=== PATIENT | female | born 1975 | race Caucasian/White ===

== ENCOUNTER → 2016-12-28 | Outpatient (CLI) | payer OTHER ==
[2016-12-28 13:33] LABS: MEAN CORPUSCULAR HEMOGLOBIN 20.7 pg (27.0-33.0); MEAN CORPUSCULAR HGB CONC 28.9 g/dl (32.0-36.5); MEAN CORPUSCULAR VOLUME 71.9 fl (80.0-96.0); RED CELL DISTRIBUTION WIDTH 16.4 % (11.5-14.5); WHITE BLOOD COUNT 7.4 K/mm3 (4.0-10.0)
--- NOTE | 2016-12-28 14:13 | REP ---
RIGHT SCAPULA: Two views of the right scapula are performed. There is no acute fracture, dislocation, or intrinsic bone disease. IMPRESSION: Negative radiographs right scapula. Signed by Jaxon Lee MD 12/28/2016 02:29 P
[2016-12-28 14:17] LABS: ALBUMIN 3.4 GM/DL (3.2-5.2); ALBUMIN/GLOBULIN RATIO 0.92 (1.00-1.93); ALKALINE PHOSPHATASE 86 U/L (45-117); ALT/SGPT 21 U/L (12-78); ANION GAP 10 MEQ/L (8-16); AST/SGOT 12 U/L (15-37); BILIRUBIN,TOTAL 0.5 MG/DL (0.2-1.0); BLOOD UREA NITROGEN 11 MG/DL (7-18); CALCIUM LEVEL 8.5 MG/DL (8.5-10.1); CARBON DIOXIDE LEVEL 24 MEQ/L (21-32); CHLORIDE LEVEL 102 MEQ/L (98-107); CHOLESTEROL LEVEL 171 MG/DL (<200); CREATININE FOR GFR 0.47 MG/DL (0.55-1.02); GLOMERULAR FILTRATION RATE > 60.0 (>58); GLUCOSE, FASTING 283 MG/DL (70-105); MAGNESIUM LEVEL 1.7 MG/DL (1.8-2.4); POTASSIUM SERUM 4.6 MEQ/L (3.5-5.1); SODIUM LEVEL 136 MEQ/L (136-145); TOTAL PROTEIN 7.1 GM/DL (6.4-8.2); TRIGLYCERIDES LEVEL 75 MG/DL (<150)
== END ==
LOC: M LAB 12:48
PROVIDERS: ATTEND Nurse Practitioner Family
DX: Z13.220 Encounter for screening for lipoid disorders (principal); R73.09 Other abnormal glucose; E28.2 Polycystic ovarian syndrome; M25.511 Pain in right shoulder

== ENCOUNTER → 2017-01-04 | Outpatient (CLI) | payer OTHER ==
--- NOTE | 2017-01-05 04:50 | REP ---
Clinical: Mass. Technique: Real time guillaume scale ultrasound examination of the right lower extremity. Findings: Directed ultrasound examination in the region of mass demonstrates a multiloculated fat containing area likely representing lipoma measuring 7.5 x 2.7 x 2.9 cm. Impression: Area of palpable mass likely represents multiloculated lipoma. Signed by Laz Carey MD 01/05/2017 04:41 A
== END ==
LOC: M RAD 12:05
PROVIDERS: ATTEND Nurse Practitioner Family
DX: D17.23 Benign lipomatous neoplasm of skin and subcutaneous tissue of right leg (principal)

== ENCOUNTER → 2017-01-06 | Outpatient (CLI) | payer OTHER ==
--- NOTE | 2017-01-09 05:59 | REP ---
MRI BRAIN WITHOUT CONTRAST: HISTORY: Bilateral tinnitus. Several punctate areas of increased signal intensity on T2-weighted images are present in the _ subcortical white matter . There is no intraparenchymal hemorrhage, infarct, mass or midline shift. The ventricular system is normal in appearance. There is no extracerebral collection. The mastoid air cells are clear. Minimal mucosal thickening is present in the maxillary sinuses. IMPRESSION: There are several punctate areas of increased signal intensity in the subcortical white matter . This is a nonspecific finding. Signed by Perez Rincon MD 01/09/2017 08:23 A
== END ==
LOC: M RAD 17:48
PROVIDERS: ATTEND Nurse Practitioner Family
DX: H93.13 Tinnitus, bilateral (principal); R53.1 Weakness

== ENCOUNTER → 2017-01-11 | Outpatient (REF) | payer OTHER ==
[2017-01-11 14:07] LABS: BASO # 0.1 K/mm3 (0.0-0.2); BASO % 1.4 % (0.0-1.0); EOS # 0.4 K/mm3 (0.0-0.50); EOS % 6.3 % (0.0-3.0); LARGE UNSTAINED CELL # 0.1 K/mm3 (0.0-0.4); LARGE UNSTAINED CELL % 1.3 % (0.0-4.0); MEAN CORPUSCULAR HEMOGLOBIN 20.7 pg (27.0-33.0); MEAN CORPUSCULAR VOLUME 73.9 fl (80.0-96.0); MONO # 0.3 K/mm3 (0.0-0.8); MONO % 4.1 % (0.0-5.0); NEUTROPHILS # 4.4 K/mm3 (1.8-7.7); NEUTROPHILS % 71.9 % (36.0-66.0); PLATELET COUNT, AUTOMATED 376 k/mm3 (150-450); RED CELL DISTRIBUTION WIDTH 15.9 % (11.5-14.5); WHITE BLOOD COUNT 6.2 K/mm3 (4.0-10.0)
[2017-01-11 14:25] LABS: ADD MORPHOLOGY? YES
[2017-01-11 14:56] LABS: ANISOCYTOSIS 1+; HYPOCHROMASIA 2+; MICROCYTOSIS 2+
[2017-01-14 00:06] LABS: GAD-65 AUTOANTIBODY <5.0 U/mL (0.0-5.0)
== END ==
LOC: M LAB REF 13:33
PROVIDERS: ATTEND Nurse Practitioner Family
DX: D50.0 Iron deficiency anemia secondary to blood loss (chronic) (principal); E55.9 Vitamin D deficiency, unspecified; R73.9 Hyperglycemia, unspecified

== ENCOUNTER → 2017-01-12 | Outpatient (CLI) | payer OTHER ==
--- NOTE | 2017-01-12 20:46 | REP ---
Clinical: Amenorrhea. Comparison: 10/17/2011 . Technique: Transabdominal pelvic ultrasound with color Doppler evaluation of the ovaries. Findings: Bladder is unremarkable and measures 11.2 x 6.5 x 10.2 cm . Enlarged, heterogeneous, anteverted uterus measures 16.3 x 4.7 x 9.3 cm and includes 5.5 cm anterior fundal subserosal fibroid, 3.1 cm left anterior fibroid, and 2.1 cm right lateral intramural fibroid. The endometrial complex measures 5.2 mm thickness. No discrete uterine or endometrial abnormalities are appreciated. Bilateral ovaries are normal in appearance and vascularity without evidence for torsion. Right ovary measures 3.0 x 1.3 x 2.8 cm ; R I = 0.59 . Left ovary measures 2.9 x 2.1 x 2.7 cm ; R I = 0.51 . No pelvic fluid or adnexal mass lesion. . Impression: 1. Heterogeneous enlarged myomatous uterus. 2. Normal bilateral ovaries. 3. No pelvic fluid or adnexal mass lesion. Signed by Laz Carey MD 01/12/2017 05:08 P
== END ==
LOC: M RAD 13:34
PROVIDERS: ATTEND Nurse Practitioner Family
DX: N91.2 Amenorrhea, unspecified (principal); D64.9 Anemia, unspecified

== ENCOUNTER → 2017-01-17 | Outpatient (REF) | payer OTHER ==
[2017-01-17 19:28] LABS: BASO % 0.8 % (0.0-1.0); EOS # 0.4 K/mm3 (0.0-0.50); LARGE UNSTAINED CELL # 0.1 K/mm3 (0.0-0.4); LARGE UNSTAINED CELL % 1.5 % (0.0-4.0); LYMPH % 15.8 % (24.0-44.0); MEAN CORPUSCULAR HGB CONC 28.7 g/dl (32.0-36.5); MEAN CORPUSCULAR VOLUME 76.7 fl (80.0-96.0); MONO # 0.4 K/mm3 (0.0-0.8); MONO % 5.6 % (0.0-5.0); NEUTROPHILS # 4.5 K/mm3 (1.8-7.7); NEUTROPHILS % 70.4 % (36.0-66.0); PLATELET COUNT, AUTOMATED 372 k/mm3 (150-450); WHITE BLOOD COUNT 6.4 K/mm3 (4.0-10.0)
[2017-01-17 19:29] LABS: ADD MORPHOLOGY? YES
[2017-01-17 21:23] LABS: ANISOCYTOSIS 1+
[2017-01-17 21:24] LABS: HYPOCHROMASIA 2+; MICROCYTOSIS 1+
== END ==
LOC: M LAB REF 17:12
PROVIDERS: ATTEND Nurse Practitioner Family
DX: D50.0 Iron deficiency anemia secondary to blood loss (chronic) (principal)

== ENCOUNTER → 2017-02-16 | Outpatient (REF) | payer OTHER ==
[2017-02-16 17:59] LABS: MEAN CORPUSCULAR HEMOGLOBIN 22.8 pg (27.0-33.0); MEAN CORPUSCULAR HGB CONC 30.6 g/dl (32.0-36.5); MEAN CORPUSCULAR VOLUME 74.7 fl (80.0-96.0); RED CELL DISTRIBUTION WIDTH 17.3 % (11.5-14.5); WHITE BLOOD COUNT 5.1 K/mm3 (4.0-10.0)
[2017-02-16 18:00] LABS: ANION GAP 11 MEQ/L (8-16); BLOOD UREA NITROGEN 11 MG/DL (7-18); CALCIUM LEVEL 8.7 MG/DL (8.5-10.1); CARBON DIOXIDE LEVEL 21 MEQ/L (21-32); CHLORIDE LEVEL 107 MEQ/L (98-107); CREATININE FOR GFR 0.46 MG/DL (0.55-1.02); GLOMERULAR FILTRATION RATE > 60.0 (>58); GLUCOSE, FASTING 243 MG/DL (70-105); POTASSIUM SERUM 4.1 MEQ/L (3.5-5.1); SODIUM LEVEL 139 MEQ/L (136-145)
== END ==
LOC: M LAB REF 17:13
PROVIDERS: ATTEND Nurse Practitioner Family
DX: E55.9 Vitamin D deficiency, unspecified (principal); D50.0 Iron deficiency anemia secondary to blood loss (chronic)

== ENCOUNTER → 2017-03-10 | Day surgery (SDC) | payer OTHER ==
[~2017-03-10] VITALS: Ht 172.7 cm; Wt 88.0 kg
[~2017-03-10] MED LIST: COLA100C3 PO; HumaLOG INSULIN (NovoLOG) PER UNIT As Ordered ONE; HumaLOG INSULIN (NovoLOG) PER UNIT SC ONE; IBUP600T26 PO; JANU100T PO; KETOROLAC 30 MG/ML VIAL (J1885) IV PRN; KETOROLAC 60 MG/2 ML VIAL (J1885) As Ordered ONE; LIDOCAINE 2% INJ 100 MG/5 ML SDV (FOR ANES.) As Ordered ONE; LIDOCAINE W/EPINEPHRINE 1% 20ML VIAL As Ordered ONE; LR 1,000 ML IV ONE; LR 1,000 ML IV SCH; METF1000 PO; MIDAZOLAM INJ 2 MG/2 ML VIAL (J2250) As Ordered ONE; NORCO, ANEXSIA 5/325MG TABLET (HYDROcodone/ACETAMINOPHEN) PO PRN; ONDANSETRON 4MG/2ML VIAL (J2405) As Ordered ONE; ONDANSETRON 4MG/2ML VIAL (J2405) IV PRN; PROPOFOL 200 MG/20 ML VIAL As Ordered ONE; TYLE500T78 PO; fentaNYL 100 MCG/2 ML INJECTION (J3010) As Ordered ONE; fentaNYL 100 MCG/2 ML INJECTION (J3010) IV PRN
[2017-03-10 09:05] LABS: CONTROL LINE UCG INT CTR LINE PRESENT
[2017-03-10 11:50] VITALS: BP 161/82
--- NOTE | 2017-03-11 08:25 | RO ---
DATE OF PROCEDURE: 03/10/2017 PREOPERATIVE DIAGNOSIS: Right thigh lipoma. POSTOPERATIVE DIAGNOSIS: Right thigh lipoma. PROCEDURES: Excision of right thigh lipoma. SURGEON: Jaxon Christian DO CUSTOMS COMPLIANCE ANALYST: None. ANESTHESIA: Intravenous (IV) sedation with 20 mL of 1% lidocaine with epinephrine local. COMPLICATIONS: None. INDICATION FOR PROCEDURE: The patient is a 41-year female who presents with a very large right posterolateral thigh lipoma that causes pain when she walks and difficulty with her clothing fitting properly. The recommendation to proceed with excision. The risks and benefits of the procedure not limited but including bleeding, infection, seroma formation, need for further surgery discussed in detail with the patient. Informed consent was obtained, and the procedure was planned. DESCRIPTION OF PROCEDURE: The patient brought back to operating room #6. She is placed in left lateral decubitus position. The right posterior thigh was sterilely prepped and draped with chlorhexidine. Next, time-out was done to confirm proper patient and proper procedure. Following that, the local was injected into the skin and subcutaneous tissues overlying this lesion. A large 10 cm incision was then created using a #15 blade scalpel. There was a large infiltrative lipoma encountered without any signs of a capsule. It was dissected circumferentially using a #10 blade scalpel. There were two separate lipomas removed. One was 8 x 6 cm and one 5 by 3 cm. They were both sent for pathology. Once they were removed, the cavity was irrigated. Hemostasis was achieved using electrocautery at a couple of small spots. Once that was completed, the two elliptical portions of skin were excised from both sides of the wound due to the excess skin. They were 10 cm in length, about 2 cm wide, each. Both of these were excised, then the incision was closed using interrupted 2-0 nylon sutures. Once the incision was closed, the area was cleaned and dried, 4 x 4s and tape were applied, thus ending the procedure.
== END ==
LOC: M SDC 08:33
PROVIDERS: ATTEND Surgery
DX: D17.23 Benign lipomatous neoplasm of skin and subcutaneous tissue of right leg (principal); E11.9 Type 2 diabetes mellitus without complications; D64.9 Anemia, unspecified; D25.9 Leiomyoma of uterus, unspecified; N93.9 Abnormal uterine and vaginal bleeding, unspecified; Z79.899 Other long term (current) drug therapy; Z79.84 Long term (current) use of oral hypoglycemic drugs

== ENCOUNTER 2017-03-15 11:54 | Emergency (ER) | payer OTHER ==
[~2017-03-15] VITALS: Ht 172.7 cm; Wt 92.3 kg
[~2017-03-15 11:54] MED LIST changes: -COLA100C3 PO; -HumaLOG INSULIN (NovoLOG) PER UNIT As Ordered ONE; -HumaLOG INSULIN (NovoLOG) PER UNIT SC ONE; -IBUP600T26 PO; -KETOROLAC 30 MG/ML VIAL (J1885) IV PRN; -KETOROLAC 60 MG/2 ML VIAL (J1885) As Ordered ONE; -LIDOCAINE 2% INJ 100 MG/5 ML SDV (FOR ANES.) As Ordered ONE; -LIDOCAINE W/EPINEPHRINE 1% 20ML VIAL As Ordered ONE; -LR 1,000 ML IV ONE; -LR 1,000 ML IV SCH; -MIDAZOLAM INJ 2 MG/2 ML VIAL (J2250) As Ordered ONE; -NORCO, ANEXSIA 5/325MG TABLET (HYDROcodone/ACETAMINOPHEN) PO PRN; -ONDANSETRON 4MG/2ML VIAL (J2405) As Ordered ONE; -ONDANSETRON 4MG/2ML VIAL (J2405) IV PRN; -PROPOFOL 200 MG/20 ML VIAL As Ordered ONE; -fentaNYL 100 MCG/2 ML INJECTION (J3010) As Ordered ONE; -fentaNYL 100 MCG/2 ML INJECTION (J3010) IV PRN
[2017-03-15] MEDS ORDERED: IBUP600T26 PO (12:09)
[2017-03-15] MEDS ORDERED: COLA100C3 PO (12:10)
[2017-03-15] MEDS ORDERED: MAGNESIUM CITRATE 300 ML BTL PO ONE (14:00)
[2017-03-15] MEDS ORDERED: FLEET ENEMA PR ONE (14:00)
[2017-03-15 14:09] VITALS: BP 144/88
== END 2017-03-15 14:21 | disposition home or self-care (01) ==
LOC: M ED 11:54
DX: K56.41 Fecal impaction (principal)

== ENCOUNTER → 2017-05-26 | Outpatient (CLI) | payer OTHER ==
[~2017-05-26] MED LIST changes: +COLA100C5 PO; +IBUP-1022 PO; -METF1000 PO; +METF10004 PO
[2017-05-26 18:54] LABS: MEAN CORPUSCULAR HEMOGLOBIN 20.8 pg (27.0-33.0); MEAN CORPUSCULAR HGB CONC 27.9 g/dl (32.0-36.5); MEAN CORPUSCULAR VOLUME 74.6 fl (80.0-96.0); RED CELL DISTRIBUTION WIDTH 15.3 % (11.5-14.5); WHITE BLOOD COUNT 7.7 K/mm3 (4.0-10.0)
== END ==
LOC: M SMT 13:33
PROVIDERS: ATTEND Specialist
DX: N93.8 Other specified abnormal uterine and vaginal bleeding (principal)

== ENCOUNTER → 2017-07-06 | Outpatient (REF) | payer OTHER ==
[2017-07-06 14:52] LABS: ALBUMIN 3.4 GM/DL (3.2-5.2); ALBUMIN/GLOBULIN RATIO 0.83 (1.00-1.93); ALKALINE PHOSPHATASE 91 U/L (45-117); ALT/SGPT 25 U/L (12-78); ANION GAP 8 MEQ/L (8-16); AST/SGOT 13 U/L (15-37); BILIRUBIN,TOTAL 0.6 MG/DL (0.2-1.0); BLOOD UREA NITROGEN 12 MG/DL (7-18); CARBON DIOXIDE LEVEL 25 MEQ/L (21-32); CHLORIDE LEVEL 101 MEQ/L (98-107); CHOLESTEROL LEVEL 186 MG/DL (<200); CREATININE FOR GFR 0.66 MG/DL (0.55-1.02); GLOMERULAR FILTRATION RATE > 60.0 (>58); GLUCOSE, FASTING 345 MG/DL (70-105); SODIUM LEVEL 134 MEQ/L (136-145); TOTAL PROTEIN 7.5 GM/DL (6.4-8.2); TRIGLYCERIDES LEVEL 128 MG/DL (<150)
[2017-07-10 14:21] LABS: GAD-65 AUTOANTIBODY <5.0 U/mL (0.0-5.0)
== END ==
LOC: M LABDRAW1 11:04
PROVIDERS: ATTEND Nurse Practitioner Family
DX: E11.40 Type 2 diabetes mellitus with diabetic neuropathy, unspecified (principal)

== ENCOUNTER → 2017-08-02 | Outpatient (REF) | payer OTHER ==
[2017-08-02 13:54] LABS: ANION GAP 8 MEQ/L (8-16); BLOOD UREA NITROGEN 16 MG/DL (7-18); CALCIUM LEVEL 8.8 MG/DL (8.5-10.1); CARBON DIOXIDE LEVEL 25 MEQ/L (21-32); CHLORIDE LEVEL 108 MEQ/L (98-107); GLOMERULAR FILTRATION RATE > 60.0 (>58); GLUCOSE, FASTING 192 MG/DL (70-105); POTASSIUM SERUM 4.1 MEQ/L (3.5-5.1); SODIUM LEVEL 141 MEQ/L (136-145)
== END ==
LOC: M LAB REF 12:18 → M LABDRAW1 12:18
PROVIDERS: ATTEND Nurse Practitioner Family
DX: E11.40 Type 2 diabetes mellitus with diabetic neuropathy, unspecified (principal)

== ENCOUNTER 2017-12-31 17:37 | Emergency (ER) | payer OTHER ==
[2017-12-31] MEDS: NS 1,000 ML IV (18:00)
[2017-12-31 18:15] LABS: KETONE, URINE AUTO RFX TRACE mg/dL (NEGATIVE); MUCUS, URINE RFX SMALL (NEGATIVE); NITRITE, URINE AUTO RFX NEGATIVE (NEGATIVE); RBC, URINE AUTO RFX 3 /HPF (0-3); SPECIFIC GRAVITY UR AUTO RFX 1.035 (1.002-1.035); SQUAM EPITHELIAL CELL UR AURFX 2 /HPF (0-6); WBC, URINE AUTO RFX 1 /HPF (0-3)
[2017-12-31 18:16] LABS: LEUKOCYTE ESTERASE UR AUTO RFX TRACE (NEGATIVE)
[2017-12-31 18:59] LABS: BASO # 0.1 10^3/uL (0.0-0.2); BASO % 1.3 % (0.0-1.0); EOS # 0.5 10^3/uL (0.0-0.50); EOS % 5.9 % (0.0-3.0); HEMATOCRIT 34.7 % (36.0-47.0); HEMOGLOBIN 10.5 g/dl (12.0-15.5); IMMATURE GRANULOCYTE % 0.4 % (0-3.0); LYMPH # 1.6 10^3/uL (1.5-4.5); LYMPH % 19.3 % (24.0-44.0); MEAN CORPUSCULAR HEMOGLOBIN 23.3 pg (27.0-33.0); MEAN CORPUSCULAR HGB CONC 30.3 g/dl (32.0-36.5); MEAN CORPUSCULAR VOLUME 77.1 fl (80.0-96.0); MONO # 0.6 10^3/uL (0.0-0.8); MONO % 6.8 % (0.0-5.0); NEUTROPHILS # 5.6 10^3/uL (1.8-7.7); NEUTROPHILS % 66.3 % (36.0-66.0); PLATELET COUNT, AUTOMATED 397 10^3/uL (150-450); WHITE BLOOD COUNT 8.4 10^3/uL (4.0-10.0)
[2017-12-31 19:20] LABS: LACTIC ACID SEPSIS PROTOCOL 1.1 MMOL/L (0.4-2.0)
[2017-12-31 20:11] LABS: ALBUMIN 3.3 GM/DL (3.2-5.2); ALKALINE PHOSPHATASE 88 U/L (45-117); ALT/SGPT 20 U/L (12-78); AMYLASE 45 U/L (25-115); ANION GAP 5 MEQ/L (8-16); AST/SGOT 14 U/L (7-37); BILIRUBIN,DIRECT < 0.1 MG/DL (0.0-0.2); BILIRUBIN,TOTAL 0.3 MG/DL (0.2-1.0); BLOOD UREA NITROGEN 13 MG/DL (7-18); CALCIUM LEVEL 8.3 MG/DL (8.5-10.1); CARBON DIOXIDE LEVEL 25 MEQ/L (21-32); CHLORIDE LEVEL 112 MEQ/L (98-107); CREATININE FOR GFR 0.56 MG/DL (0.55-1.30); GLOMERULAR FILTRATION RATE > 60.0 (>58); GLUCOSE, FASTING 142 MG/DL (70-100); LIPASE 127 U/L (73-393); POTASSIUM SERUM 4.1 MEQ/L (3.5-5.1); SODIUM LEVEL 142 MEQ/L (136-145); TOTAL PROTEIN 7.4 GM/DL (6.4-8.2)
== END 2017-12-31 20:57 | disposition home or self-care (01) ==
LOC: M ED 17:37
DX: R10.11 Right upper quadrant pain (principal); R11.0 Nausea; E11.9 Type 2 diabetes mellitus without complications; Z98.890 Other specified postprocedural states; Z88.2 Allergy status to sulfonamides; Z79.899 Other long term (current) drug therapy; Z79.4 Long term (current) use of insulin
CPT/HCPCS: 76705

== ENCOUNTER → 2018-01-04 | Outpatient (REF) | payer OTHER ==
[2018-01-04 15:47] LABS: BASO # 0.1 10^3/uL (0.0-0.2); BASO % 1.1 % (0.0-1.0); EOS # 0.5 10^3/uL (0.0-0.50); HEMATOCRIT 32.9 % (36.0-47.0); HEMOGLOBIN 9.8 g/dl (12.0-15.5); IMMATURE GRANULOCYTE % 0.5 % (0-3.0); LYMPH # 1.4 10^3/uL (1.5-4.5); LYMPH % 19.4 % (24.0-44.0); MEAN CORPUSCULAR HEMOGLOBIN 23.4 pg (27.0-33.0); MEAN CORPUSCULAR HGB CONC 29.8 g/dl (32.0-36.5); MEAN CORPUSCULAR VOLUME 78.5 fl (80.0-96.0); MONO # 0.6 10^3/uL (0.0-0.8); MONO % 7.5 % (0.0-5.0); NEUTROPHILS # 4.9 10^3/uL (1.8-7.7); NEUTROPHILS % 65.5 % (36.0-66.0); PLATELET COUNT, AUTOMATED 422 10^3/uL (150-450); RED BLOOD COUNT 4.19 10^6/uL (4.00-5.40); WHITE BLOOD COUNT 7.4 10^3/uL (4.0-10.0)
[2018-01-04 16:09] LABS: ERYTHROCYTE SEDIMENTATION RATE 28 mm/hr (0-20)
[2018-01-04 16:13] LABS: ALBUMIN 3.3 GM/DL (3.2-5.2); ALBUMIN/GLOBULIN RATIO 0.87 (1.00-1.93); ALKALINE PHOSPHATASE 88 U/L (45-117); ALT/SGPT 19 U/L (12-78); ANION GAP 5 MEQ/L (8-16); AST/SGOT 15 U/L (7-37); BILIRUBIN,TOTAL 0.3 MG/DL (0.2-1.0); BLOOD UREA NITROGEN 9 MG/DL (7-18); CALCIUM LEVEL 8.7 MG/DL (8.5-10.1); CARBON DIOXIDE LEVEL 26 MEQ/L (21-32); CHLORIDE LEVEL 112 MEQ/L (98-107); CREATININE FOR GFR 0.46 MG/DL (0.55-1.30); GLOMERULAR FILTRATION RATE > 60.0 (>58); GLUCOSE, FASTING 141 MG/DL (70-100); POTASSIUM SERUM 4.5 MEQ/L (3.5-5.1); RHEUMATOID FACTOR QUANT < 10.0 IU/ML (<15.0); SODIUM LEVEL 143 MEQ/L (136-145); TOTAL PROTEIN 7.1 GM/DL (6.4-8.2)
[2018-01-04 16:17] LABS: ESTIMATED AVERAGE GLUCOSE 192 MG/DL (60-110); HEMOGLOBIN A1c 8.3 %
[2018-01-05 08:06] LABS: VITAMIN B12 LEVEL 347 PG/ML (247-911)
[2018-01-05 08:07] LABS: FOLATE 19.5 NG/ML (>5.4)
[2018-01-09 10:52] LABS: DRVV SCREEN 38.1 SEC
[2018-01-09 11:10] LABS: PTT LUPUS TYPE ANTICOAG SCREEN 0.9 (0-1.2)
[2018-01-09 14:14] LABS: VITAMIN B1 LEVEL WHOLE BLOOD 146.6 nmol/L (66.5-200.0); VITAMIN B6,PYRIDOXAL PHOSPHATE 3.9 ug/L (2.0-32.8)
[2018-01-10 00:06] LABS: ANCA-ATYPICAL <1:20 titer (Neg:<1:20); ANTI DOUBLE STRAND-DNA AB 1 IU/mL (0-9); ANTINUCLEAR ANTIBODIES DIRECT Negative (Negative); CYTOPLASMIC NEUTROP AB ANCA-C <1:20 titer (Neg:<1:20); Lyme Disease IgG/IgM Antibodie <0.91 ISR (0.00-0.90); Lyme Disease IgM Ab Quantitati <0.80 index (0.00-0.79); PERINUCLEAR AB ANCA-P <1:20 titer (Neg:<1:20); SJOGREN'S ANTI SS-A <0.2 AI (0.0-0.9); SJOGREN'S ANTI SS-B <0.2 AI (0.0-0.9); VITAMIN E(ALPHA TOCOPHEROL) 8.6 mg/L (7.0-25.1); VITAMIN E(GAMMA TOCOPHEROL) 2.1 mg/L (0.5-5.5)
== END ==
LOC: M LABDRAW1 13:29
DX: G62.9 Polyneuropathy, unspecified (principal)
CPT/HCPCS: 82746

== ENCOUNTER → 2018-01-30 | Outpatient (CLI) | payer OTHER ==
[2018-01-30 20:10] LABS: URIC ACID 3.7 MG/DL (2.6-6.0)
== END ==
LOC: M LAB 19:16
DX: M25.471 Effusion, right ankle (principal)
CPT/HCPCS: 73610

== ENCOUNTER → 2018-02-02 | Outpatient (REF) | payer OTHER ==
[2018-02-02 14:02] LABS: TOTAL PROTEIN,RANDOM URINE 10.2 MG/DL (0.0-12.0)
== END ==
LOC: M LABNEURO 11:29
DX: G62.9 Polyneuropathy, unspecified (principal)
CPT/HCPCS: 36415

== ENCOUNTER 2018-05-07 19:54 | Emergency (ER) | payer OTHER ==
[2018-05-07] MEDS: KETOROLAC 30 MG/ML VIAL (J1885) IV (21:20)
[2018-05-07] MEDS: NS 1,000 ML IV (21:20)
[2018-05-07] MEDS: ACETAMINOPHEN 325 MG TAB PO (21:20)
[2018-05-07 21:22] LABS: BASO # 0.1 10^3/uL (0.0-0.2); BASO % 0.5 % (0.0-1.0); EOS # 0.2 10^3/uL (0.0-0.50); EOS % 1.7 % (0.0-3.0); HEMATOCRIT 37.1 % (36.0-47.0); HEMOGLOBIN 11.6 g/dl (12.0-15.5); IMMATURE GRANULOCYTE % 0.5 % (0-3.0); LYMPH # 1.2 10^3/uL (1.5-4.5); LYMPH % 8.8 % (24.0-44.0); MEAN CORPUSCULAR HEMOGLOBIN 24.7 pg (27.0-33.0); MEAN CORPUSCULAR HGB CONC 31.3 g/dl (32.0-36.5); MEAN CORPUSCULAR VOLUME 79.1 fl (80.0-96.0); MONO # 0.7 10^3/uL (0.0-0.8); MONO % 5.1 % (0.0-5.0); NEUTROPHILS # 11.1 10^3/uL (1.8-7.7); NEUTROPHILS % 83.4 % (36.0-66.0); PLATELET COUNT, AUTOMATED 320 10^3/uL (150-450); RED BLOOD COUNT 4.69 10^6/uL (4.00-5.40); RED CELL DISTRIBUTION WIDTH 18.5 % (11.5-14.5); WHITE BLOOD COUNT 13.2 10^3/uL (4.0-10.0)
[2018-05-07 21:29] LABS: KETONE, URINE AUTO RFX NEGATIVE (NEGATIVE); NITRITE, URINE AUTO RFX NEGATIVE (NEGATIVE); RBC, URINE AUTO RFX 6 /HPF (0-3); SPECIFIC GRAVITY UR AUTO RFX 1.014 (1.002-1.035); SQUAM EPITHELIAL CELL UR AURFX 1 /HPF (0-6); YEAST LIKE CELL URINE AUTO RFX LARGE
[2018-05-07 21:32] LABS: LEUKOCYTE ESTERASE UR AUTO RFX 3+ (NEGATIVE); WBC, URINE AUTO RFX TNTC /HPF (0-3)
[2018-05-07 21:36] LABS: ANION GAP 9 MEQ/L (8-16); BLOOD UREA NITROGEN 17 MG/DL (7-18); C REACTIVE PROTEIN QUANTITATIV 1.04 MG/DL (0.00-0.30); CALCIUM LEVEL 8.6 MG/DL (8.5-10.1); CARBON DIOXIDE LEVEL 24 MEQ/L (21-32); CHLORIDE LEVEL 105 MEQ/L (98-107); CREATININE FOR GFR 0.69 MG/DL (0.55-1.30); GLOMERULAR FILTRATION RATE > 60.0 (>58); GLUCOSE, FASTING 269 MG/DL (70-100); POTASSIUM SERUM 4.4 MEQ/L (3.5-5.1); SODIUM LEVEL 138 MEQ/L (136-145)
[2018-05-07 21:40] LABS: LACTIC ACID SEPSIS PROTOCOL 1.2 MMOL/L (0.4-2.0)
[2018-05-07] MEDS: cefTRIAXone SOD 1 GM in D5W MINI-BAG PLUS 50 ML IV (22:11)
[2018-05-07 22:55] LABS: AMYLASE 35 U/L (25-115); LIPASE 132 U/L (73-393)
== END 2018-05-07 23:20 | disposition home or self-care (01) ==
LOC: M ED 19:54
DX: R50.9 Fever, unspecified (principal); N10 Acute pyelonephritis; E11.9 Type 2 diabetes mellitus without complications; N18.9 Chronic kidney disease, unspecified; Z88.2 Allergy status to sulfonamides; Z88.1 Allergy status to other antibiotic agents; Z79.4 Long term (current) use of insulin; Z79.899 Other long term (current) drug therapy
CPT/HCPCS: J0696

== ENCOUNTER 2018-05-10 13:18 | Emergency (ER) | payer OTHER ==
[2018-05-10] MEDS: NS 1,000 ML IV ×2 (14:00)
[2018-05-10] MEDS: ONDANSETRON 4MG/2ML VIAL (J2405) IV (14:00)
[2018-05-10 14:18] LABS: BASO # 0.1 10^3/uL (0.0-0.2); BASO % 0.6 % (0.0-1.0); EOS # 0.2 10^3/uL (0.0-0.50); EOS % 2.3 % (0.0-3.0); HEMATOCRIT 39.1 % (36.0-47.0); HEMOGLOBIN 12.2 g/dl (12.0-15.5); IMMATURE GRANULOCYTE % 0.5 % (0-3.0); LYMPH # 1.2 10^3/uL (1.5-4.5); LYMPH % 13.3 % (24.0-44.0); MEAN CORPUSCULAR HGB CONC 31.2 g/dl (32.0-36.5); MEAN CORPUSCULAR VOLUME 80.1 fl (80.0-96.0); MONO # 0.5 10^3/uL (0.0-0.8); MONO % 5.5 % (0.0-5.0); NEUTROPHILS # 6.9 10^3/uL (1.8-7.7); NEUTROPHILS % 77.8 % (36.0-66.0); PLATELET COUNT, AUTOMATED 343 10^3/uL (150-450); RED BLOOD COUNT 4.88 10^6/uL (4.00-5.40); RED CELL DISTRIBUTION WIDTH 18.6 % (11.5-14.5); WHITE BLOOD COUNT 8.8 10^3/uL (4.0-10.0)
[2018-05-10 14:30] LABS: VENOUS BASE EXCESS -4.2 (-2.0-2.0); VENOUS HCO3 21.1 MEQ/L (23.0-27.0); VENOUS O2 SATURATION 94.2 % (60.0-80.0); VENOUS PARTIAL PRESSURE CO2 39.5 mmHg (38.0-50.0); VENOUS PARTIAL PRESSURE O2 74.8 mmHg (30.0-50.0); VENOUS PH 7.346 UNITS (7.330-7.430); VENOUS TOTAL CO2 22.3 MEQ/L (24.0-28.0)
[2018-05-10] MEDS: MORPHINE 4 MG/ML 1ML VIAL/SYRINGE (J2270) IV (14:45)
[2018-05-10] MEDS: diphenhydrAMINE INJ 50MG/ML VIAL (J1200) IV (14:51)
[2018-05-10] MEDS ORDERED: diphenhydrAMINE INJ 50MG/ML VIAL (J1200) As Ordered (14:53)
[2018-05-10 15:22] LABS: ANION GAP 10 MEQ/L (8-16); BLOOD UREA NITROGEN 18 MG/DL (7-18); CALCIUM LEVEL 8.7 MG/DL (8.5-10.1); CARBON DIOXIDE LEVEL 24 MEQ/L (21-32); CHLORIDE LEVEL 107 MEQ/L (98-107); CPK CREATINE PHOSPHOKINASE 114 U/L (26-192); CREATININE FOR GFR 0.57 MG/DL (0.55-1.30); GLOMERULAR FILTRATION RATE > 60.0 (>58); GLUCOSE, FASTING 141 MG/DL (70-100); POTASSIUM SERUM 3.9 MEQ/L (3.5-5.1); SODIUM LEVEL 141 MEQ/L (136-145); TROPONIN I < 0.02 NG/ML (< 0.10)
[2018-05-10 15:28] LABS: CK-MB VALUE MASS 2.3 NG/ML (<3.6); MB/CK RELATIVE INDEX 2.01 (< OR =4)
[2018-05-10 17:03] LABS: KETONE, URINE AUTO RFX 2+ mg/dL (NEGATIVE); MUCUS, URINE RFX SMALL (NEGATIVE); NITRITE, URINE AUTO RFX NEGATIVE (NEGATIVE); RBC, URINE AUTO RFX 26 /HPF (0-3); SPECIFIC GRAVITY UR AUTO RFX 1.019 (1.002-1.035); SQUAM EPITHELIAL CELL UR AURFX 14 /HPF (0-6); YEAST LIKE CELL URINE AUTO RFX LARGE
[2018-05-10 17:06] LABS: LEUKOCYTE ESTERASE UR AUTO RFX 3+ (NEGATIVE); WBC, URINE AUTO RFX 47 /HPF (0-3)
== END 2018-05-10 19:28 | disposition home or self-care (01) ==
LOC: M ED 13:18
DX: R55 Syncope and collapse (principal); R11.2 Nausea with vomiting, unspecified; R19.7 Diarrhea, unspecified; E11.9 Type 2 diabetes mellitus without complications; I10 Essential (primary) hypertension
CPT/HCPCS: J2270

== ENCOUNTER → 2018-06-20 | Outpatient (CLI) | payer OTHER ==
[2018-06-20 19:05] LABS: ESTIMATED AVERAGE GLUCOSE 220 MG/DL (60-110); HEMOGLOBIN A1c 9.3 %
== END ==
LOC: M LAB 17:03
DX: E11.9 Type 2 diabetes mellitus without complications (principal)
CPT/HCPCS: 83036

== ENCOUNTER 2018-08-08 15:35 | Emergency (ER) | payer OTHER | END 2018-08-08 17:09 | disposition home or self-care (01) | LOC: M ED 15:35 | DX: H43.12 Vitreous hemorrhage, left eye (principal); E11.9 Type 2 diabetes mellitus without complications; Z79.899 Other long term (current) drug therapy; Z88.1 Allergy status to other antibiotic agents; Z88.2 Allergy status to sulfonamides | CPT/HCPCS: 99283 ==

== ENCOUNTER 2018-09-16 18:37 | Observation (INO) | payer OTHER ==
[~2018-09-16] VITALS: Ht 172.7 cm; Wt 101.4 kg
[~2018-09-16 18:37] MED LIST changes: +CIPR-249 PO; +JARD1TAB PO; +LEUP7.5KIT IM; +LISI-542 PO; +TOUJ1.2I SC; +TRUL0.5I SC
[2018-09-16] MEDS ORDERED: ACET500T15 PO (18:49)
[2018-09-16 19:57] LABS: BASO # 0.1 10^3/uL (0.0-0.2); BASO % 1.1 % (0.0-1.0); EOS # 0.5 10^3/uL (0.0-0.50); EOS % 7.3 % (0.0-3.0); HEMATOCRIT 23.2 % (36.0-47.0); LYMPH # 1.1 10^3/uL (1.5-4.5); LYMPH % 18.6 % (24.0-44.0); MEAN CORPUSCULAR HEMOGLOBIN 20.7 pg (27.0-33.0); MEAN CORPUSCULAR HGB CONC 27.6 g/dl (32.0-36.5); MEAN CORPUSCULAR VOLUME 75.1 fl (80.0-96.0); MONO # 0.5 10^3/uL (0.0-0.8); MONO % 7.5 % (0.0-5.0); PLATELET COUNT, AUTOMATED 325 10^3/uL (150-450); RED BLOOD COUNT 3.09 10^6/uL (4.00-5.40); WHITE BLOOD COUNT 6.1 10^3/uL (4.0-10.0)
[2018-09-16 20:01] LABS: HEMOGLOBIN 6.4 g/dl (12.0-15.5)
[2018-09-16 20:07] LABS: ALBUMIN 3.3 GM/DL (3.2-5.2); ALT/SGPT 20 U/L (12-78); BILIRUBIN,TOTAL 0.5 MG/DL (0.2-1.0); BLOOD UREA NITROGEN 9 MG/DL (7-18); CALCIUM LEVEL 8.4 MG/DL (8.5-10.1); CARBON DIOXIDE LEVEL 24 MEQ/L (21-32); CHLORIDE LEVEL 105 MEQ/L (98-107); CREATININE FOR GFR 0.65 MG/DL (0.55-1.30); GLOMERULAR FILTRATION RATE > 60.0 (>58); GLUCOSE, FASTING 398 MG/DL (70-100); POTASSIUM SERUM 4.1 MEQ/L (3.5-5.1); SODIUM LEVEL 136 MEQ/L (136-145); TOTAL PROTEIN 7.1 GM/DL (6.4-8.2)
[2018-09-16] MEDS ORDERED: HYDR25TAB PO (20:20)
[2018-09-16] MEDS ORDERED: HumaLOG INSULIN (NovoLOG) PER UNIT SC SCH (21:00)
[2018-09-16] MEDS ORDERED: ACETAMINOPHEN 500 MG TAB PO PRN (21:15)
[2018-09-16] MEDS ORDERED: ONDANSETRON 4MG/2ML VIAL (J2405) IV PRN (21:15)
[2018-09-16] MEDS ORDERED: NS 1,000 ML IV SCH (21:18)
[2018-09-16] MEDS ORDERED: diphenhydrAMINE 25 MG CAP PO ONE (21:30)
[2018-09-16] MEDS ORDERED: DEXTROSE 50% 50 ML SYRINGE IV PRN (21:30)
[2018-09-16] MEDS ORDERED: GLUCAGON FOR INJ 1 MG VIAL (J1610) SC PRN (21:30)
[2018-09-16] MEDS ORDERED: GLUCOSE 4 GM CHEW TABLET PO PRN (21:30)
[2018-09-16 21:45] VITALS: BP 168/87
[2018-09-17 01:10] VITALS: BP 142/75
--- NOTE | 2018-09-17 05:18 | HPE ---
DATE OF ADMISSION: 09/16/2018 43-year-old G5, P3-0-2-3 female presented to the emergency room with increased swelling to her lower extremities for the last couple of weeks. She was seen in Urgent Care center early in the day where hemoglobin level came back at 6.5 g/dL. She has very heavy menstrual periods due to uterine fibroids. She has been on Lupron in the past which did cause amenorrhea, however, she has not been able to get Lupron approved in recent months. She is also a poorly controlled diabetic who requires insulin. She does see an hand violin maker, however, she has had difficulty obtaining her diabetes medications so her diabetes went out of control. She has known history of fibroids. MEDICAL HISTORY: 1. Insulin requiring diabetes. 2. Polycystic ovarian syndrome (PCOS). 3. History of anemia. 4. History of uterine fibroids. SURGICAL HISTORY: 1. Cholecystectomy in 1994. 2. Excision of lipoma from her leg in 2016. ALLERGIES: CIPRO, SULFA. SOCIAL HISTORY: Patient denies cigarettes, alcohol or drug use. She lives in [place]. FAMILY HISTORY: Noncontributory. PHYSICAL EXAMINATION: Blood pressure 145/74, pulse 105 afebrile. She is a pale appearing female. Head and neck exam is normal. Lungs: Clear. Heart: Regular rate and rhythm. Abdomen: Nontender, nondistended. Mass palpable just above the pubic bone consistent with uterine fibroids. Extremities: 1+ lower extremity edema. Pelvic exam: Deferred. No current bleeding. LABS: Hemoglobin 6.4 g/dL. Hemoglobin A1c on 09/16/2018 was 11.2%. Glucose 398. ASSESSMENT: 43-year-old G5, P3-0-2-3 female who presents with severe anemia due to heavy menstrual periods from uterine fibroids. She also has poorly controlled insulin requiring diabetes. PLAN: Admit for blood transfusion. She has been consented for 3 units of packed red blood cells. We will place on sliding scale insulin in order to control sugars until they obtain her medication regimen. Patient will ultimately require hysterectomy for treatment of uterine fibroids.
[2018-09-17] MEDS ORDERED: diphenhydrAMINE 25 MG CAP PO ONE ×2 (06:00)
[2018-09-17 07:05] VITALS: BP 161/81
--- NOTE | 2018-09-17 07:14 | NUR ---
Progress Note S: No complaints O: WT=851/75 P=110 AF NAD Pallor improved Abd: NT, soft ext: NT A/P 43 yo with severe anemia due to menorrhagia, poorly controlled diabetes Pt received 3 units PRBC's Repeat CBC at 10 am Pt was covered with regular insulin last night Consider Provera with onset of next period Perez Morrow MD
[2018-09-17] MEDS ORDERED: HumaLOG INSULIN (NovoLOG) PER UNIT SC SCH (07:30)
[2018-09-17 10:37] LABS: HEMATOCRIT 29.4 % (36.0-47.0); MEAN CORPUSCULAR HEMOGLOBIN 23.2 pg (27.0-33.0); MEAN CORPUSCULAR HGB CONC 30.3 g/dl (32.0-36.5); MEAN CORPUSCULAR VOLUME 76.6 fl (80.0-96.0); PLATELET COUNT, AUTOMATED 310 10^3/uL (150-450); RED BLOOD COUNT 3.84 10^6/uL (4.00-5.40)
[2018-09-17 10:55] LABS: HEMOGLOBIN 8.9 g/dl (12.0-15.5)
== END 2018-09-17 15:15 | disposition home or self-care (01) ==
LOC: M ED 18:37 → M ED INP 21:00 → M PED 21:40
PROVIDERS: ADMIT Specialist; ATTEND Specialist
DX: D64.9 Anemia, unspecified (principal); N92.0 Excessive and frequent menstruation with regular cycle; E11.65 Type 2 diabetes mellitus with hyperglycemia; R60.0 Localized edema; E28.2 Polycystic ovarian syndrome; D25.9 Leiomyoma of uterus, unspecified; Z88.2 Allergy status to sulfonamides; Z79.4 Long term (current) use of insulin
CPT/HCPCS: 36415; 36430; 80053; 85025; 85027; 86850; 86900; 86901; 86920; 99284; P9016

== ENCOUNTER → 2018-10-03 | Outpatient (CLI) | payer OTHER ==
[~2018-10-03] MED LIST changes: +ACET500T15 PO; +HYDR25TAB PO
[2018-10-03 17:21] LABS: BASO # 0.1 10^3/uL (0.0-0.2); BASO % 1.5 % (0.0-1.0); EOS # 0.5 10^3/uL (0.0-0.50); EOS % 6.1 % (0.0-3.0); HEMATOCRIT 30.1 % (36.0-47.0); HEMOGLOBIN 8.9 g/dl (12.0-15.5); LYMPH # 1.7 10^3/uL (1.5-4.5); LYMPH % 19.5 % (24.0-44.0); MEAN CORPUSCULAR HGB CONC 29.6 g/dl (32.0-36.5); MEAN CORPUSCULAR VOLUME 77.8 fl (80.0-96.0); MONO # 0.6 10^3/uL (0.0-0.8); MONO % 6.7 % (0.0-5.0); NEUTROPHILS # 5.6 10^3/uL (1.8-7.7); NEUTROPHILS % 65.7 % (36.0-66.0); PLATELET COUNT, AUTOMATED 595 10^3/uL (150-450); RED BLOOD COUNT 3.87 10^6/uL (4.00-5.40); WHITE BLOOD COUNT 8.6 10^3/uL (4.0-10.0)
[2018-10-03 17:36] LABS: HEMOGLOBIN A1c 9.6 %
== END ==
LOC: M LAB 16:46
PROVIDERS: ATTEND Specialist
DX: D25.2 Subserosal leiomyoma of uterus (principal); N93.8 Other specified abnormal uterine and vaginal bleeding

== ENCOUNTER → 2018-11-20 | Outpatient (CLI) | payer OTHER ==
--- NOTE | 2018-11-21 02:22 | REP ---
Clinical: Right shoulder pain . Technique: Internal rotation, external rotation, and Y view. Findings: No acute fracture or dislocation. The acromioclavicular and glenohumeral joints are intact. Very minimal cortical irregularity at the acromioclavicular joint is essentially age-appropriate. No periarticular calcifications or degenerative changes are appreciated. Sub acromial space is normal. Surrounding soft tissues are unremarkable. Impression: Essentially age-appropriate right shoulder radiograph series. Electronically Signed by Laz Carey MD 11/21/2018 02:13 A
== END ==
LOC: M WUC 16:00
PROVIDERS: ATTEND Physician Assistant
DX: M25.511 Pain in right shoulder (principal)

== ENCOUNTER → 2019-01-17 | Outpatient (CLI) | payer OTHER ==
[2019-01-17 14:47] LABS: BASO # 0.1 10^3/uL (0.0-0.2); BASO % 0.8 % (0.0-1.0); EOS # 0.3 10^3/uL (0.0-0.50); EOS % 3.6 % (0.0-3.0); HEMATOCRIT 34.7 % (36.0-47.0); LYMPH # 1.2 10^3/uL (1.5-4.5); MEAN CORPUSCULAR HEMOGLOBIN 22.9 pg (27.0-33.0); MEAN CORPUSCULAR HGB CONC 28.8 g/dl (32.0-36.5); MEAN CORPUSCULAR VOLUME 79.4 fl (80.0-96.0); MONO # 0.6 10^3/uL (0.0-0.8); MONO % 6.2 % (0.0-5.0); NEUTROPHILS # 6.9 10^3/uL (1.8-7.7); NEUTROPHILS % 76.1 % (36.0-66.0); PLATELET COUNT, AUTOMATED 369 10^3/uL (150-450); RED BLOOD COUNT 4.37 10^6/uL (4.00-5.40)
[2019-01-17 15:07] LABS: ALBUMIN 3.2 GM/DL (3.2-5.2); ALT/SGPT 21 U/L (12-78); BILIRUBIN,TOTAL 0.2 MG/DL (0.2-1.0); BLOOD UREA NITROGEN 21 MG/DL (7-18); CALCIUM LEVEL 8.3 MG/DL (8.5-10.1); CARBON DIOXIDE LEVEL 23 MEQ/L (21-32); CHLORIDE LEVEL 109 MEQ/L (98-107); CHOLESTEROL LEVEL 182 MG/DL (<200); CHOLESTEROL RISK RATIO 2.888 (<5); CREATININE FOR GFR 0.59 MG/DL (0.55-1.30); GLOMERULAR FILTRATION RATE > 60.0 (>58); GLUCOSE, FASTING 252 MG/DL (70-100); HDL CHOLESTEROL 63 MG/DL (>40); IRON (FE) 27 UG/DL (50-170); LDL CHOLESTEROL 74 MG/DL (<100); NON-HDL-C 119 MG/DL; POTASSIUM SERUM 4.7 MEQ/L (3.5-5.1); SODIUM LEVEL 139 MEQ/L (136-145); TOTAL PROTEIN 7.4 GM/DL (6.4-8.2); TRIGLYCERIDES LEVEL 223 MG/DL (<150)
[2019-01-17 15:21] LABS: CREATININE, URINE 34.2 MG/DL; MALB URINE SIEMENS 35.3 MG/L; MAU/CREAT RATIO 103.2 MCG/MG (0.0-30.0)
[2019-01-17 15:54] LABS: HEMOGLOBIN A1c 10.2 %
== END ==
LOC: M SMT 09:07
PROVIDERS: ATTEND Family Medicine Addiction Medicine
DX: D50.0 Iron deficiency anemia secondary to blood loss (chronic) (principal); E11.9 Type 2 diabetes mellitus without complications

== ENCOUNTER → 2019-01-17 | Outpatient (CLI) | payer OTHER ==
--- NOTE | 2019-01-21 13:38 | DEXA ---
AP SPINE L1 - L4 1.091 -0.8 -0.8 LT FEMUR TOTAL 0.919 -0.7 -0.4 LT NECK 0.854 -1.3 -0.7 RT FEMUR TOTAL 0.959 -0.4 -0.1 RT NECK 0.863 -1.3 -0.7 TOTAL BODY TOTAL OTHER COMMENTS: Normal bone densitometry of the spine. There is low bone density of the hips. FOLLOW-UP: Recommendation for the next bone density exam: 2 years. LUCIANA
== END ==
LOC: M WHC 08:31
PROVIDERS: ATTEND Specialist
DX: Z13.820 Encounter for screening for osteoporosis (principal); M85.89 Other specified disorders of bone density and structure, multiple sites

== ENCOUNTER → 2019-03-20 | Outpatient (CLI) | payer OTHER ==
[2019-03-20 18:38] LABS: HEMATOCRIT 37.4 % (36.0-47.0); HEMOGLOBIN 11.1 g/dl (12.0-15.5); MEAN CORPUSCULAR HEMOGLOBIN 24.9 pg (27.0-33.0); MEAN CORPUSCULAR HGB CONC 29.7 g/dl (32.0-36.5); MEAN CORPUSCULAR VOLUME 83.9 fl (80.0-96.0); PLATELET COUNT, AUTOMATED 364 10^3/uL (150-450); RED BLOOD COUNT 4.46 10^6/uL (4.00-5.40); WHITE BLOOD COUNT 7.4 10^3/uL (4.0-10.0)
[2019-03-20 19:05] LABS: HEMOGLOBIN A1c 9.9 %
[2019-03-20 19:11] LABS: ALBUMIN 3.4 GM/DL (3.2-5.2); ALT/SGPT 22 U/L (12-78); BILIRUBIN,TOTAL 0.5 MG/DL (0.2-1.0); BLOOD UREA NITROGEN 28 MG/DL (7-18); CALCIUM LEVEL 8.8 MG/DL (8.5-10.1); CARBON DIOXIDE LEVEL 22 MEQ/L (21-32); CHLORIDE LEVEL 107 MEQ/L (98-107); GLOMERULAR FILTRATION RATE > 60.0 (>58); GLUCOSE, FASTING 119 MG/DL (70-100); POTASSIUM SERUM 4.6 MEQ/L (3.5-5.1); SODIUM LEVEL 140 MEQ/L (136-145); TOTAL PROTEIN 7.6 GM/DL (6.4-8.2)
== END ==
LOC: M SMT 13:38
PROVIDERS: ATTEND Specialist
DX: N93.8 Other specified abnormal uterine and vaginal bleeding (principal)

== ENCOUNTER 2019-04-21 19:54 | Emergency (ER) | payer OTHER ==
[~2019-04-21] VITALS: Ht 172.7 cm; Wt 100.0 kg
[2019-04-21] MEDS ORDERED: AK-T0.3S (20:08)
[2019-04-21] MEDS ORDERED: METF-414 (20:08)
[2019-04-21] MEDS ORDERED: GLIM1TAB (20:08)
[2019-04-21] MEDS ORDERED: ADME100I2 (20:08)
[2019-04-21] MEDS ORDERED: ALOG25TA (20:08)
[2019-04-21] MEDS ORDERED: LISI-542 (20:08)
[2019-04-21] MEDS ORDERED: GABA-1171 (20:08)
[2019-04-21] MEDS ORDERED: diphenhydrAMINE 50 MG CAP PO ONE (21:00)
[2019-04-21] MEDS ORDERED: predniSONE 20 MG TAB PO ONE (21:00)
[2019-04-21 21:39] VITALS: BP 161/92
[2019-04-21] MEDS ORDERED: PRED20TA PO (21:40)
[2019-04-21] MEDS ORDERED: BENA25CA4 PO (21:40)
== END 2019-04-21 21:47 | disposition home or self-care (01) ==
LOC: M ED 19:54
DX: L29.9 Pruritus, unspecified (principal); T38.3X5A Adverse effect of insulin and oral hypoglycemic [antidiabetic] drugs, initial encounter; X58.XXXA Exposure to other specified factors, initial encounter; Y92.89 Other specified places as the place of occurrence of the external cause; E11.9 Type 2 diabetes mellitus without complications; E28.2 Polycystic ovarian syndrome; Z79.899 Other long term (current) drug therapy; Z79.4 Long term (current) use of insulin; Z88.1 Allergy status to other antibiotic agents; Z88.2 Allergy status to sulfonamides

== ENCOUNTER → 2019-05-22 | Outpatient (CLI) | payer OTHER ==
[~2019-05-22] MED LIST changes: +ADME100I2; +AK-T0.3S OD; +ALOG25TA PO; +APAP325T4 PO; +BENA25CA4 PO; +GABA-1171 PO; +GLIM1TAB4 PO; +LUPR45IN IM; +METF-414; +OXYC1TAB23 PO; +PRED20TA PO
[2019-05-22 13:01] LABS: BASO # 0.1 10^3/uL (0.0-0.2); BASO % 1.3 % (0.0-1.0); EOS # 0.5 10^3/uL (0.0-0.5); EOS % 7.2 % (0.0-3.0); HEMATOCRIT 39.4 % (36.0-47.0); HEMOGLOBIN 11.8 g/dl (12.0-15.5); LYMPH # 1.3 10^3/uL (1.5-5.0); LYMPH % 17.6 % (24.0-44.0); MEAN CORPUSCULAR HEMOGLOBIN 24.1 pg (27.0-33.0); MEAN CORPUSCULAR HGB CONC 29.9 g/dl (32.0-36.5); MEAN CORPUSCULAR VOLUME 80.4 fl (80.0-96.0); MONO # 0.5 10^3/uL (0.0-0.8); MONO % 7.6 % (0.0-5.0); NEUTROPHILS # 4.7 10^3/uL (1.5-8.5); NEUTROPHILS % 65.9 % (36.0-66.0); PLATELET COUNT, AUTOMATED 380 10^3/uL (150-450); WHITE BLOOD COUNT 7.1 10^3/uL (4.0-10.0)
[2019-05-22 13:29] LABS: ALBUMIN 3.5 GM/DL (3.2-5.2); ALT/SGPT 23 U/L (12-78); BILIRUBIN,TOTAL 0.4 MG/DL (0.2-1.0); BLOOD UREA NITROGEN 14 MG/DL (7-18); CALCIUM LEVEL 9.1 MG/DL (8.5-10.1); CARBON DIOXIDE LEVEL 28 MEQ/L (21-32); CHLORIDE LEVEL 109 MEQ/L (98-107); CHOLESTEROL LEVEL 175 MG/DL (<200); CHOLESTEROL RISK RATIO 2.573 (<5); CREATININE FOR GFR 0.62 MG/DL (0.55-1.30); GLOMERULAR FILTRATION RATE > 60.0 (>58); GLUCOSE, FASTING 115 MG/DL (70-100); HDL CHOLESTEROL 68 MG/DL (>40); LDL CHOLESTEROL 87 MG/DL (<100); NON-HDL-C 107 MG/DL; POTASSIUM SERUM 4.7 MEQ/L (3.5-5.1); SODIUM LEVEL 140 MEQ/L (136-145); TOTAL PROTEIN 7.6 GM/DL (6.4-8.2); TRIGLYCERIDES LEVEL 100 MG/DL (<150)
[2019-05-22 14:42] LABS: INR 0.92; PROTHROMBIN TIME 12.1 SECONDS (11.8-14.0)
== END ==
LOC: M LAB 12:29
PROVIDERS: ATTEND Nurse Practitioner Family
DX: Z00.01 Encounter for general adult medical examination with abnormal findings (principal)

== ENCOUNTER 2019-07-29 05:51 | Day surgery (SDC) | payer OTHER ==
[~2019-07-29] VITALS: Ht 172.7 cm; Wt 107.0 kg
[2019-07-29] VITALS (9 sets, daily range): BP systolic 134–160; BP diastolic 35–96
[~2019-07-29 05:51] MED LIST changes: -APAP325T4 PO; +GLIM1TAB2 PO; -GLIM1TAB4 PO; -OXYC1TAB23 PO
[2019-07-29] MEDS ORDERED: LR 1,000 ML IV ONE (06:00)
[2019-07-29] MEDS ORDERED: ceFAZolin SOD 2 GM in IV 1 EA IV ONE (06:00)
[2019-07-29] MEDS ORDERED: ROCURONIUM BROMIDE 50 MG/5 ML VIAL As Ordered ONE ×2 (06:07→08:35)
[2019-07-29] MEDS ORDERED: LIDOCAINE 2% INJ 100 MG/5 ML SDV (FOR ANES.) As Ordered ONE (06:07)
[2019-07-29] MEDS ORDERED: dexameTHASONE 4 MG/ML 1ML VIAL (J1100) As Ordered ONE (06:07)
[2019-07-29] MEDS ORDERED: PROPOFOL 200 MG/20 ML VIAL As Ordered ONE ×2 (06:07→07:56)
[2019-07-29] MEDS ORDERED: ONDANSETRON 4MG/2ML VIAL (J2405) As Ordered ONE (06:07)
[2019-07-29] MEDS ORDERED: fentaNYL 250 MCG/5 ML INJECTION (J3010) As Ordered ONE (06:12)
[2019-07-29] MEDS ORDERED: MIDAZOLAM INJ 2 MG/2 ML VIAL (J2250) As Ordered ONE (06:13)
[2019-07-29 06:20] LABS: HEMATOCRIT 38.5 % (36.0-47.0); HEMOGLOBIN 11.5 g/dl (12.0-15.5); MEAN CORPUSCULAR HEMOGLOBIN 25.2 pg (27.0-33.0); MEAN CORPUSCULAR HGB CONC 29.9 g/dl (32.0-36.5); MEAN CORPUSCULAR VOLUME 84.4 fl (80.0-96.0); PLATELET COUNT, AUTOMATED 306 10^3/uL (150-450); RED BLOOD COUNT 4.56 10^6/uL (4.00-5.40); WHITE BLOOD COUNT 6.8 10^3/uL (4.0-10.0)
[2019-07-29] MEDS ORDERED: METHYLENE BLUE 0.5% (5MG/ML) 10 ML AMP (PROVAYBLUE)(Q9968 PER 1MG) As Ordered ONE (07:15)
[2019-07-29] MEDS ORDERED: BUPIVACAINE HCL 0.25% 10 ML VIAL As Ordered ONE (07:15)
[2019-07-29] MEDS ORDERED: HYDROmorphone HCL 2 MG/ML 1ML VIAL (J1170) As Ordered ONE (08:20)
[2019-07-29] MEDS ORDERED: SUGAMMADEX SODIUM 500 MG/5 ML VIAL (BRIDION) As Ordered ONE (08:27)
[2019-07-29] MEDS ORDERED: KETOROLAC 60 MG/2 ML VIAL (J1885) As Ordered ONE (08:53)
[2019-07-29] MEDS ORDERED: LR 1,000 ML IV SCH ×2 (09:00→10:30)
[2019-07-29] MEDS ORDERED: fentaNYL 100 MCG/2 ML INJECTION (J3010) IV PRN (09:00)
[2019-07-29] MEDS ORDERED: PERCOCET 5MG/325MG TAB PO PRN (09:00)
[2019-07-29] MEDS ORDERED: ONDANSETRON 4MG/2ML VIAL (J2405) IV PRN (09:00)
[2019-07-29] MEDS ORDERED: METOCLOPRAMIDE INJ 10MG/2ML VIAL (J2765) IV PRN (09:00)
[2019-07-29] MEDS: HYDROMORPHONE HCL 0.5 MG/ 0.5 ML SYRINGE (J1170 PER 1) IV PRN ×3 (09:17→09:47)
[2019-07-29] MEDS ORDERED: OXYC1TAB23 PO (09:17)
[2019-07-29] MEDS ORDERED: IBUP-1022 PO (09:19)
[2019-07-29] MEDS ORDERED: HYDROMORPHONE HCL 0.5 MG/ 0.5 ML SYRINGE (J1170 PER 1) As Ordered ONE (09:20)
--- NOTE | 2019-07-29 09:35 | RO ---
DATE OF OPERATION: 07/29/2019 PREOPERATIVE DIAGNOSES: Menorrhagia, fibroids, severe anemia. POSTOPERATIVE DIAGNOSES: Menorrhagia, fibroids, severe anemia. PROCEDURE: Robotic assisted laparoscopic hysterectomy, cystoscopy. SURGEON: Perez Morrow MD PAYROLL CLERK: Antonette Arceo NP ANESTHESIA: General endotracheal. ESTIMATED BLOOD LOSS: 150 mL. URINE OUTPUT: 100 mL. FINDINGS: Enlarged, irregular shaped uterus with multiple fibroids. Normal ovaries and fallopian tubes. Normal upper abdomen. OPERATIVE SUMMARY: The patient was taken to the operating room where general endotracheal anesthesia was induced. She was prepped, draped in sterile fashion in the dorsal lithotomy position. The bladder was emptied with a catheter was placed. A VCare uterine manipulator was placed. A periumbilical incision was made with a scalpel and a Veress needle was placed through this incision while tenting upon skin of the abdomen. Intraabdominal location of the Veress was assessed with use of a saline filled syringe. A pneumoperitoneum was created. The Veress needle was removed. An 8 mm trocar using Mobibeam was inserted through this incision. Three 8 mm suprapubic ports were placed under direct visualization without difficulty. The patient was placed in Trendelenburg position and the da Melinda surgical robot was docked to the ports. Using the fenestrated bipolar and vessel sealer the utero-ovarian the utero-ovarian ligaments, fallopian tubes, and round ligaments were coagulated, incised. The anterior and posterior leaves of the broad ligament were . A bladder flap was created. The uterine vessels were coagulated and incised. Using monopolar Endo Arturo, a colpotomy was created at the level of the VCare cup in the upper vagina. This was extended circumferentially around the vagina. Specimen containing the uterus and cervix was removed through the vagina. The vaginal cuff was closed with #1 V-Loc suture in a running fashion. The pelvis was irrigated. Good hemostasis was noted. Cystoscopy was performed using a 70 degree cystoscope. Bilateral ureteral jets were identified. There was no evidence of injury to the bladder. All instruments were removed. The skin was closed with #4-0 Monocryl subcuticular sutures. Sponge and instruments and needle counts were correct. Antonette Arceo NP assisted throughout the procedure. She helped position the patient, insert the ports and manipulate the uterus. She helped remove the specimen and subsequently closed. She was indispensable for the procedure.
[2019-07-29] MEDS ORDERED: KETOROLAC 30 MG/ML VIAL (J1885) IV PRN (10:30)
[2019-07-29] MEDS: ONDANSETRON 4MG/2ML VIAL (J2405) IV PRN ×2 (10:53→18:28)
[2019-07-29] MEDS: DOCUSATE SODIUM 100 MG CAP PO SCH ×2 (13:00→22:13)
[2019-07-29] MEDS: PERCOCET 5MG/325MG TAB PO PRN ×2 (13:01→18:28)
[2019-07-29] MEDS: GLIMEPIRIDE 2 MG TAB PO SCH (17:29)
[2019-07-29] MEDS: metFORMIN (GLUCOPHAGE) 500 MG TAB PO SCH (17:29)
[2019-07-29] MEDS ORDERED: MORPHINE 4 MG/ML 1ML VIAL/SYRINGE (J2270) IV PRN (17:30)
[2019-07-29] MEDS ORDERED: GLIMEPIRIDE 2 MG TAB PO SCH (17:30)
[2019-07-29] MEDS ORDERED: TOUJEO SC SCH (21:00)
[2019-07-30 02:00] VITALS: BP 149/79
[2019-07-30 06:00] VITALS: BP 130/74
[2019-07-30] MEDS: DOCUSATE SODIUM 100 MG CAP PO SCH (08:00)
[2019-07-30] MEDS: GLIMEPIRIDE 2 MG TAB PO SCH (08:06)
[2019-07-30] MEDS: metFORMIN (GLUCOPHAGE) 500 MG TAB PO SCH (08:06)
== END 2019-07-30 10:50 | disposition home or self-care (01) ==
LOC: M SDC 05:51 → M MS5PR 10:30 → M SDC 07-30 10:50
PROVIDERS: ATTEND Specialist
DX: N80.0 Endometriosis of uterus (principal); D25.2 Subserosal leiomyoma of uterus; D25.1 Intramural leiomyoma of uterus; N72 Inflammatory disease of cervix uteri; D64.9 Anemia, unspecified; E11.9 Type 2 diabetes mellitus without complications; E28.2 Polycystic ovarian syndrome; R94.31 Abnormal electrocardiogram [ECG] [EKG]; J45.909 Unspecified asthma, uncomplicated; E66.9 Obesity, unspecified; Z68.33 Body mass index [BMI] 33.0-33.9, adult; M75.01 Adhesive capsulitis of right shoulder; H57.89 Other specified disorders of eye and adnexa; Z91.048 Other nonmedicinal substance allergy status; Z88.1 Allergy status to other antibiotic agents; Z88.5 Allergy status to narcotic agent; Z88.8 Allergy status to other drugs, medicaments and biological substances; Z88.2 Allergy status to sulfonamides; Z79.899 Other long term (current) drug therapy; Z79.4 Long term (current) use of insulin
CPT/HCPCS: 36415; 58570; 81025; 82947; 85027; 86850; 86900; 86901; 88307; 96374; 96376; J0690; J1100; J1170; J1885; J2250; J2405; J3010

== ENCOUNTER 2019-09-25 23:50 | Emergency (ER) | payer OTHER ==
[~2019-09-25] VITALS: Ht 172.7 cm; Wt 104.4 kg
[~2019-09-25 23:50] MED LIST changes: +OXYC1TAB23 PO
[2019-09-26] MEDS ORDERED: APAP325T4 PO (00:16)
[2019-09-26 01:04] LABS: INFLUENZA A AMPLIFICATION NEGATIVE (NEGATIVE); INFLUENZA B AMPLIFICATION NEGATIVE (NEGATIVE)
[2019-09-26 01:13] VITALS: BP 128/74
[2019-09-26 02:13] LABS: BASO # 0.1 10^3/uL (0.0-0.2); BASO % 0.5 % (0.0-1.0); EOS # 0.1 10^3/uL (0.0-0.5); EOS % 1.4 % (0.0-3.0); HEMATOCRIT 37.4 % (36.0-47.0); HEMOGLOBIN 11.1 g/dl (12.0-15.5); LYMPH # 1.1 10^3/uL (1.5-5.0); LYMPH % 11.9 % (24.0-44.0); MEAN CORPUSCULAR HEMOGLOBIN 24.7 pg (27.0-33.0); MEAN CORPUSCULAR HGB CONC 29.7 g/dl (32.0-36.5); MEAN CORPUSCULAR VOLUME 83.3 fl (80.0-96.0); MONO # 0.7 10^3/uL (0.0-0.8); MONO % 7.2 % (0.0-5.0); NEUTROPHILS # 7.2 10^3/uL (1.5-8.5); NEUTROPHILS % 78.3 % (36.0-66.0); PLATELET COUNT, AUTOMATED 387 10^3/uL (150-450); RED BLOOD COUNT 4.49 10^6/uL (4.00-5.40); WHITE BLOOD COUNT 9.2 10^3/uL (4.0-10.0)
[2019-09-26 02:30] LABS: MONO SCRN NEGATIVE (NEGATIVE)
[2019-09-26] MEDS ORDERED: POTASSIUM CHLORIDE 10 MEQ SR TABLET PO ONE (02:45)
--- NOTE | 2019-09-26 11:19 | REP ---
Clinical: Pneumonia and fever . Comparison: 06/20/2014 . Technique: PA and lateral. Findings: The mediastinum and cardiac silhouette are normal. The lung webber are clear and without acute consolidation, effusion, or pneumothorax. The skeletal structures are intact and normal. Impression: 1. No acute cardiopulmonary process. Electronically Signed by Laz Carey MD 09/26/2019 04:53 A
== END 2019-09-26 02:47 | disposition home or self-care (01) ==
LOC: M ED 23:50
DX: B34.9 Viral infection, unspecified (principal); E87.6 Hypokalemia; E11.9 Type 2 diabetes mellitus without complications; J45.909 Unspecified asthma, uncomplicated; F41.9 Anxiety disorder, unspecified; Z88.2 Allergy status to sulfonamides; Z88.5 Allergy status to narcotic agent; Z88.8 Allergy status to other drugs, medicaments and biological substances; Z91.09 Other allergy status, other than to drugs and biological substances; Z79.4 Long term (current) use of insulin; Z79.899 Other long term (current) drug therapy

== ENCOUNTER → 2019-09-26 | Outpatient (REF) | payer OTHER ==
[~2019-09-26] MED LIST changes: +APAP325T4 PO; -GLIM1TAB2 PO; +GLIM1TAB4 PO
[2019-09-26 19:56] LABS: APPEARANCE, URINE CLOUDY (CLEAR); BACTERIA, URINE AUTO 2+ (NEGATIVE); BILIRUBIN, URINE AUTO NEGATIVE (NEGATIVE); BLOOD, URINE BLOOD 1+ (NEGATIVE); COLOR, URINE YELLOW (YELLOW); GLUCOSE, URINE (UA) AUTO 3+ mg/dL (NEGATIVE); KETONE, URINE AUTO TRACE mg/dL (NEGATIVE); LEUKOCYTE ESTERASE, URINE AUTO 3+ (NEGATIVE); MUCUS, URINE SMALL (NEGATIVE); NITRITE, URINE AUTO NEGATIVE (NEGATIVE); PROTEIN, URINE AUTO 1+ mg/dL (NEGATIVE); RBC, URINE AUTO 17 /HPF (0-3); SPECIFIC GRAVITY URINE AUTO 1.029 (1.002-1.035); SQUAMOUS EPITHELIAL CELL UR AU 4 /HPF (0-6); UROBILINOGEN, URINE AUTO 0.2 mg/dL (0.0-2.0); WBC, URINE AUTO TNTC /HPF (0-3)
== END ==
LOC: M LAB REF 13:21
PROVIDERS: ATTEND Nurse Practitioner Family
DX: R50.9 Fever, unspecified (principal)

== ENCOUNTER 2019-12-22 23:24 | Emergency (ER) | payer OTHER ==
[~2019-12-22] VITALS: Ht 172.7 cm; Wt 106.7 kg
[2019-12-23 00:27] LABS: BASO % 0.3 % (0.0-1.0); EOS # 0.1 10^3/uL (0.0-0.5); EOS % 0.4 % (0.0-3.0); HEMATOCRIT 34.5 % (36.0-47.0); LYMPH # 1.1 10^3/uL (1.5-5.0); LYMPH % 8.4 % (24.0-44.0); MEAN CORPUSCULAR HEMOGLOBIN 26.2 pg (27.0-33.0); MEAN CORPUSCULAR HGB CONC 31.9 g/dl (32.0-36.5); MEAN CORPUSCULAR VOLUME 82.1 fl (80.0-96.0); MONO % 7.5 % (0.0-5.0); NEUTROPHILS # 10.9 10^3/uL (1.5-8.5); NEUTROPHILS % 82.9 % (36.0-66.0); PLATELET COUNT, AUTOMATED 358 10^3/uL (150-450); WHITE BLOOD COUNT 13.1 10^3/uL (4.0-10.0)
[2019-12-23 00:54] LABS: ALBUMIN 2.7 GM/DL (3.2-5.2); ALT/SGPT 36 U/L (12-78); BLOOD UREA NITROGEN 9 MG/DL (7-18); CALCIUM LEVEL 8.1 MG/DL (8.5-10.1); CARBON DIOXIDE LEVEL 28 MEQ/L (21-32); CHLORIDE LEVEL 103 MEQ/L (98-107); CK-MB VALUE MASS 1.1 NG/ML (<3.6); CPK CREATINE PHOSPHOKINASE 99 U/L (26-192); CREATININE FOR GFR 0.59 MG/DL (0.55-1.30); GLOMERULAR FILTRATION RATE > 60.0 (>58); GLUCOSE, FASTING 148 MG/DL (70-100); MB/CK RELATIVE INDEX 1.11 (< OR =4); SODIUM LEVEL 137 MEQ/L (136-145); TROPONIN I < 0.02 NG/ML (< 0.10)
[2019-12-23] MEDS ORDERED: POTASSIUM CHLORIDE 10 MEQ SR TABLET PO ONE (01:15)
[2019-12-23 01:21] LABS: MAGNESIUM LEVEL 1.9 MG/DL (1.8-2.4)
[2019-12-23] MEDS ORDERED: PROM25TA12 PO (01:33)
[2019-12-23] MEDS ORDERED: VENTAER INH (01:35)
[2019-12-23] MEDS ORDERED: ALBUTEROL 90 MCG/ACT 8GM HFA INHALER INH ONE (01:45)
[2019-12-23 02:30] VITALS: BP 149/70
[2019-12-23] MEDS ORDERED: IBUPROFEN 600 MG TAB PO ONE (02:30)
--- NOTE | 2019-12-23 08:23 | REP ---
REASON: Cough with fever. COMPARISON: 09/26/2019 CHEST PORTABLE: FINDINGS: The technique utilized in obtaining the radiograph has magnified the cardiac silhouette and accentuated the interstitial markings. The superior mediastinal structures are midline. The cardiac silhouette is unremarkable in size, shape, and position. The diaphragmatic surfaces of the lungs are regular, and the costophrenic angles are clear. The pulmonary webber are clear. The imaged osseous structures are intact. IMPRESSION: There is no acute cardiopulmonary disease. No change from the prior exam other than technique. Electronically Signed by Ricardo Williamson DO 12/23/2019 09:49 A
--- NOTE | 2019-12-24 08:24 | ECGEPIP ---
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
== END 2019-12-23 02:53 | disposition home or self-care (01) ==
LOC: M ED 23:24
DX: E87.6 Hypokalemia (principal); R05 Cough; R50.9 Fever, unspecified; E11.9 Type 2 diabetes mellitus without complications; Z79.899 Other long term (current) drug therapy; Z79.4 Long term (current) use of insulin; Z88.1 Allergy status to other antibiotic agents; Z88.2 Allergy status to sulfonamides; Z88.5 Allergy status to narcotic agent; Z88.8 Allergy status to other drugs, medicaments and biological substances; Z91.048 Other nonmedicinal substance allergy status
CPT/HCPCS: 36415; 71045; 80053; 82550; 82553; 83605; 83735; 85025; 86140; 87040; 87486; 87581; 87633; 87798; 87880; 93005; 94640; 99284; U0002

== ENCOUNTER 2020-01-06 23:33 | Emergency (ER) | payer OTHER ==
[~2020-01-06] VITALS: Ht 172.7 cm; Wt 106.0 kg
[~2020-01-06 23:33] MED LIST changes: +PROM25TA12 PO; +VENTAER INH
[2020-01-06] MEDS ORDERED: IBUP200C25 PO (23:45)
[2020-01-07 00:31] LABS: BASO # 0.1 10^3/uL (0.0-0.2); BASO % 0.9 % (0.0-1.0); EOS # 0.3 10^3/uL (0.0-0.5); EOS % 2.3 % (0.0-3.0); HEMATOCRIT 38.5 % (36.0-47.0); HEMOGLOBIN 12.3 g/dl (12.0-15.5); LYMPH # 1.4 10^3/uL (1.5-5.0); LYMPH % 11.7 % (24.0-44.0); MEAN CORPUSCULAR HEMOGLOBIN 26.6 pg (27.0-33.0); MEAN CORPUSCULAR HGB CONC 31.9 g/dl (32.0-36.5); MEAN CORPUSCULAR VOLUME 83.3 fl (80.0-96.0); MONO # 0.9 10^3/uL (0.0-0.8); NEUTROPHILS # 8.8 10^3/uL (1.5-8.5); NEUTROPHILS % 76.4 % (36.0-66.0); PLATELET COUNT, AUTOMATED 465 10^3/uL (150-450); RED BLOOD COUNT 4.62 10^6/uL (4.00-5.40); WHITE BLOOD COUNT 11.6 10^3/uL (4.0-10.0)
[2020-01-07 00:44] LABS: BLOOD UREA NITROGEN 9 MG/DL (7-18); C REACTIVE PROTEIN QUANTITATIV 2.61 MG/DL (0.00-0.30); CARBON DIOXIDE LEVEL 26 MEQ/L (21-32); CHLORIDE LEVEL 105 MEQ/L (98-107); CK-MB VALUE MASS 1.2 NG/ML (<3.6); CPK CREATINE PHOSPHOKINASE 53 U/L (26-192); CREATININE FOR GFR 0.57 MG/DL (0.55-1.30); GLOMERULAR FILTRATION RATE > 60.0 (>58); GLUCOSE, FASTING 141 MG/DL (70-100); LDH LACTATE DEHYDROGENASE 82 U/L (84-246); MB/CK RELATIVE INDEX 2.26 (< OR =4); POTASSIUM SERUM 3.7 MEQ/L (3.5-5.1); SODIUM LEVEL 139 MEQ/L (136-145); TROPONIN I < 0.02 NG/ML (< 0.10)
[2020-01-07 01:05] LABS: ABG BASE EXCESS 1.1 (-2.0-2.0); ABG HCO3 25.2 MEQ/L (22.0-26.0); ABG O2 SATURATION 93.9 % (95.0-99.0); ABG PARTIAL PRESSURE CO2 37.9 mmHg (35.0-45.0); ABG PARTIAL PRESSURE O2 70.5 mmHg (75.0-100.0); ABG STANDARD HCO3 25.4 MEQ/L (22.0-26.0); ABG TOTAL CO2 26.3 MEQ/L (22.0-29.0)
[2020-01-07] MEDS ORDERED: ISOVUE-370 76% 100ML VIAL As Ordered ONE (01:45)
--- NOTE | 2020-01-07 03:16 | REPVR ---
PROCEDURE INFORMATION: Exam: CT Angiography Chest With Contrast Exam date and time: 01/07/20 (2:19am) Age: 44 years old Clinical indication: Chest pain and dyspnea TECHNIQUE: Imaging protocol: Computed tomographic angiography of the chest with intravenous contrast. 3D rendering: MIP and/or 3D reconstructed images were created by the technologist. Radiation optimization: All CT scans at this facility use at least one of these dose optimization techniques: automated exposure control; mA and/or kV adjustment per patient size (includes targeted exams where dose is matched to clinical indication); or iterative reconstruction. Contrast material: Iso Contrast volume: 75 ml Contrast route: Antecubital vein COMPARISON: CT CHEST of 06/20/14 FINDINGS: Pulmonary arteries: Normal. No pulmonary emboli. Aorta: Unremarkable. No aortic aneurysm. No aortic dissection. Lungs: Diffuse bilateral hazy ground glass opacities. No consolidation. No masses. Pleural space: Unremarkable. No pneumothorax. No pleural effusions. Heart: Cardiomegaly. No pericardial effusion. Lymph nodes: Unremarkable. No enlarged lymph nodes. Bones/joints: Unremarkable. No acute fracture. Soft tissues: Unremarkable. Thyroid gland: Calcifications in each thyroid lobe. Upper abdomen: Prominent liver size. Splenomegaly. Fatty infiltration of the pancreas (partially imaged). Small hiatal hernia. IMPRESSION: Diffuse bilateral hazy ground glass opacities. No consolidation. No pleural effusions. These are nonspecific findings, and may indicate diffuse pneumonia, eg. No filling defects suspicious for pulmonary emboli are seen. There is no CT evidence of aortic dissection nor leakage. No aortic aneurysm is appreciated. Cardiomegaly. Prominent liver size. Splenomegaly. See additional comments above. Electronically signed by: Aracelis Lowry On 01/07/2020 03:16:25 AM
[2020-01-07 04:43] VITALS: BP 160/90
--- NOTE | 2020-01-08 09:37 | ED PDOC ---
Post-Departure Follow-Up marcos torres faxed formalr eport of ct chest for fu Brian Vang MD Jan 08, 2020 09:37
== END 2020-01-07 04:45 | disposition home or self-care (01) ==
LOC: M ED 23:33
DX: J69.8 Pneumonitis due to inhalation of other solids and liquids (principal); R06.02 Shortness of breath; R50.9 Fever, unspecified; E11.9 Type 2 diabetes mellitus without complications; I10 Essential (primary) hypertension; Z88.2 Allergy status to sulfonamides; Z88.5 Allergy status to narcotic agent; Z88.8 Allergy status to other drugs, medicaments and biological substances
CPT/HCPCS: 36600; 71275; 80048; 82550; 82553; 82803; 83615; 85025; 85379; 86140; 87040; 87486; 87581; 87633; 87798; 99284; Q9967; U0002

== ENCOUNTER → 2020-04-16 | Outpatient (CLI) | payer OTHER ==
[~2020-04-16] MED LIST changes: +IBUP200C25 PO
[2020-05-16 12:56] LABS: APPEARANCE, URINE CLEAR (CLEAR); BACTERIA, URINE AUTO NEGATIVE (NEGATIVE); BILIRUBIN, URINE AUTO NEGATIVE (NEGATIVE); BLOOD, URINE BLOOD 1+ (NEGATIVE); COLOR, URINE YELLOW (YELLOW); GLUCOSE, URINE (UA) AUTO 3+ mg/dL (NEGATIVE); KETONE, URINE AUTO NEGATIVE (NEGATIVE); LEUKOCYTE ESTERASE, URINE AUTO NEGATIVE (NEGATIVE); NITRITE, URINE AUTO NEGATIVE (NEGATIVE); PROTEIN, URINE AUTO 1+ mg/dL (NEGATIVE); RBC, URINE AUTO 1 /HPF (0-3); SPECIFIC GRAVITY URINE AUTO 1.025 (1.002-1.035); SQUAMOUS EPITHELIAL CELL UR AU 2 /HPF (0-6); UROBILINOGEN, URINE AUTO 0.2 mg/dL (0.0-2.0); WBC, URINE AUTO 0 /HPF (0-3)
[2020-05-16 12:57] LABS: BASO # 0.1 10^3/uL (0.0-0.2); BASO % 1.2 % (0.0-1.0); EOS # 0.5 10^3/uL (0.0-0.5); EOS % 6.3 % (0.0-3.0); HEMATOCRIT 42.7 % (36.0-47.0); HEMOGLOBIN 13.4 g/dl (12.0-15.5); LYMPH # 1.5 10^3/uL (1.5-5.0); LYMPH % 18.3 % (24.0-44.0); MEAN CORPUSCULAR HEMOGLOBIN 27.4 pg (27.0-33.0); MEAN CORPUSCULAR HGB CONC 31.4 g/dl (32.0-36.5); MEAN CORPUSCULAR VOLUME 87.3 fl (80.0-96.0); MONO # 0.6 10^3/uL (0.0-0.8); MONO % 7.1 % (0.0-5.0); NEUTROPHILS # 5.6 10^3/uL (1.5-8.5); NEUTROPHILS % 66.5 % (36.0-66.0); PLATELET COUNT, AUTOMATED 330 10^3/uL (150-450); RED BLOOD COUNT 4.89 10^6/uL (4.00-5.40); WHITE BLOOD COUNT 8.4 10^3/uL (4.0-10.0)
[2020-06-01 08:36] LABS: ALBUMIN 3.5 GM/DL (3.2-5.2); ALT/SGPT 27 U/L (12-78); BILIRUBIN,TOTAL 0.3 MG/DL (0.2-1.0); BLOOD UREA NITROGEN 15 MG/DL (7-18); CALCIUM LEVEL 8.8 MG/DL (8.5-10.1); CARBON DIOXIDE LEVEL 26 MEQ/L (21-32); CHLORIDE LEVEL 107 MEQ/L (98-107); CHOLESTEROL LEVEL 172 MG/DL (<200); CHOLESTEROL RISK RATIO 3.583 (<5); CREATININE FOR GFR 0.62 MG/DL (0.55-1.30); FREE T4 0.83 NG/DL (0.76-1.46); GLOMERULAR FILTRATION RATE > 60.0 (>58); GLUCOSE, FASTING 138 MG/DL (70-100); HDL CHOLESTEROL 48 MG/DL (>40); HEMOGLOBIN A1c 7.8 %; LDL CHOLESTEROL 106 MG/DL (<100); NON-HDL-C 124 MG/DL; POTASSIUM SERUM 4.4 MEQ/L (3.5-5.1); SODIUM LEVEL 140 MEQ/L (136-145); TOTAL 25(OH) VITAMIN D 26.9 NG/ML (30.0-100.0); TOTAL PROTEIN 7.7 GM/DL (6.4-8.2); TRIGLYCERIDES LEVEL 89 MG/DL (<150)
== END ==
LOC: M LAB 11:40
PROVIDERS: ATTEND Nurse Practitioner Family
DX: B99.9 Unspecified infectious disease (principal); M79.89 Other specified soft tissue disorders; L89.622 Pressure ulcer of left heel, stage 2; E11.65 Type 2 diabetes mellitus with hyperglycemia; K59.04 Chronic idiopathic constipation; E55.9 Vitamin D deficiency, unspecified; Z13.220 Encounter for screening for lipoid disorders; E66.09 Other obesity due to excess calories

== ENCOUNTER → 2020-10-27 | Outpatient (REF) | payer OTHER ==
[~2020-10-27] MED LIST changes: +HYDR-3490 PO; -HYDR25TAB PO; -LISI-542 PO; +LISI-898 PO
[2020-10-28 15:04] LABS: CREATININE, URINE 73.3 MG/DL; MAU/CREAT RATIO 1321.9 MCG/MG (0.0-30.0)
== END ==
LOC: M LAB REF 12:46
PROVIDERS: ATTEND Nurse Practitioner Family
DX: E11.40 Type 2 diabetes mellitus with diabetic neuropathy, unspecified (principal)

== ENCOUNTER → 2022-05-09 | Outpatient (CLI) | payer OTHER ==
[~2022-05-09] MED LIST changes: -LISI-898 PO; +LISI5TAB11 PO
[2022-05-09 12:30] LABS: BASO # 0.1 10^3/uL (0.0-0.2); BASO % 0.8 % (0.0-1.0); EOS # 0.6 10^3/uL (0.0-0.5); EOS % 6.3 % (0.0-3.0); HEMATOCRIT 42.4 % (36.0-47.0); HEMOGLOBIN 13.8 g/dl (12.0-15.5); LYMPH # 1.4 10^3/uL (1.5-5.0); LYMPH % 15.6 % (24.0-44.0); MEAN CORPUSCULAR HGB CONC 32.5 g/dl (32.0-36.5); MEAN CORPUSCULAR VOLUME 92.2 fl (80.0-96.0); MONO # 0.6 10^3/uL (0.0-0.8); MONO % 6.6 % (2.0-8.0); NEUTROPHILS # 6.4 10^3/uL (1.5-8.5); PLATELET COUNT, AUTOMATED 310 10^3/uL (150-450); WHITE BLOOD COUNT 9.1 10^3/uL (4.0-10.0)
[2022-05-09 13:11] LABS: ALBUMIN 3.4 GM/DL (3.2-5.2); ALT/SGPT 28 U/L (12-78); BILIRUBIN,TOTAL 0.5 MG/DL (0.2-1.0); BLOOD UREA NITROGEN 16 MG/DL (7-18); CALCIUM LEVEL 8.7 MG/DL (8.5-10.1); CARBON DIOXIDE LEVEL 26 MEQ/L (21-32); CHLORIDE LEVEL 111 MEQ/L (98-107); CHOLESTEROL LEVEL 159 MG/DL (<200); CREATININE FOR GFR 0.64 MG/DL (0.55-1.30); GLOMERULAR FILTRATION RATE > 60.0 (>58); GLUCOSE, FASTING 92 MG/DL (70-100); GLUCOSE,RANDOM 92 MG/DL (LESS THAN 200); HDL CHOLESTEROL 60 MG/DL (>40); LDL CHOLESTEROL 81 MG/DL (<100); NON-HDL-C 99 MG/DL; POTASSIUM SERUM 3.7 MEQ/L (3.5-5.1); SODIUM LEVEL 141 MEQ/L (136-145); TOTAL PROTEIN 7.3 GM/DL (6.4-8.2); TRIGLYCERIDES LEVEL 88 MG/DL (<150)
[2022-05-09 13:28] LABS: TOTAL 25(OH) VITAMIN D 40.3 NG/ML (30.0-100.0)
[2022-05-09 13:29] LABS: VITAMIN B12 LEVEL 334 PG/ML
[2022-05-09 13:40] LABS: HEMOGLOBIN A1c 6.4 %
[2022-05-12 12:02] LABS: FOLATE 12.7 NG/ML
== END ==
LOC: M LAB 11:45
PROVIDERS: ATTEND Nurse Practitioner Family
DX: E11.40 Type 2 diabetes mellitus with diabetic neuropathy, unspecified (principal); E55.9 Vitamin D deficiency, unspecified; E66.9 Obesity, unspecified

== ENCOUNTER → 2022-05-10 | Outpatient (REF) | payer OTHER ==
[2022-05-11 17:53] LABS: CREATININE, URINE 57.6 MG/DL; MAU/CREAT RATIO 696.1 MCG/MG (0.0-30.0)
== END ==
LOC: M LAB REF 16:17
PROVIDERS: ATTEND Nurse Practitioner Family
DX: E11.9 Type 2 diabetes mellitus without complications (principal)

== ENCOUNTER 2022-08-27 17:58 | Emergency (ER) | payer OTHER ==
[~2022-08-27] VITALS: Ht 172.7 cm; Wt 102.1 kg
[2022-08-27] MEDS ORDERED: JARD1TAB3 (18:18)
[2022-08-27 20:36] LABS: BASO % 0.4 % (0.0-1.0); EOS # 0.6 10^3/uL (0.0-0.5); EOS % 5.9 % (0.0-3.0); HEMATOCRIT 32.3 % (36.0-47.0); HEMOGLOBIN 10.6 g/dl (12.0-15.5); LYMPH # 1.7 10^3/uL (1.5-5.0); LYMPH % 18.1 % (24.0-44.0); MEAN CORPUSCULAR HEMOGLOBIN 30.5 pg (27.0-33.0); MEAN CORPUSCULAR HGB CONC 32.8 g/dl (32.0-36.5); MEAN CORPUSCULAR VOLUME 92.8 fl (80.0-96.0); MONO # 0.6 10^3/uL (0.0-0.8); MONO % 6.8 % (2.0-8.0); NEUTROPHILS # 6.4 10^3/uL (1.5-8.5); NEUTROPHILS % 68.2 % (36.0-66.0); PLATELET COUNT, AUTOMATED 246 10^3/uL (150-450); RED BLOOD COUNT 3.48 10^6/uL (4.00-5.40); WHITE BLOOD COUNT 9.3 10^3/uL (4.0-10.0)
[2022-08-27 20:56] LABS: BILIRUBIN,DIRECT 0.1 MG/DL (<0.4)
[2022-08-27 20:57] LABS: ALBUMIN 3.5 G/DL (3.2-5.2); ALKALINE PHOSPHATASE 72 U/L (46-116); ALT/SGPT 20 U/L (7.0-40); AST/SGOT 16 U/L (<34); BILIRUBIN,TOTAL 0.5 MG/DL (0.3-1.2); BLOOD UREA NITROGEN 18 MG/DL (9-23); CALCIUM LEVEL 9.2 MG/DL (8.5-10.1); CARBON DIOXIDE LEVEL 24 MMOL/L (20-31); CHLORIDE LEVEL 107 MMOL/L (98-107); GLOMERULAR FILTRATION RATE > 60.0 (>58); GLUCOSE, FASTING 64 MG/DL (60-100); POTASSIUM SERUM 3.8 MMOL/L (3.5-5.1); SODIUM LEVEL 142 MMOL/L (136-145); TOTAL PROTEIN 7.5 G/DL (5.7-8.2)
[2022-08-27 21:08] LABS: ERYTHROCYTE SEDIMENTATION RATE 43 mm/hr (0-20)
[2022-08-27] MEDS ORDERED: DOXYCYCLINE HYCLATE 100MG TABLET PO ONE (21:10)
[2022-08-27] MEDS ORDERED: DOXY-443 PO (21:13)
[2022-08-27 21:24] VITALS: BP 160/82
== END 2022-08-27 21:24 | disposition home or self-care (01) ==
LOC: M ED 17:58
DX: L03.115 Cellulitis of right lower limb (principal); E11.40 Type 2 diabetes mellitus with diabetic neuropathy, unspecified; J45.909 Unspecified asthma, uncomplicated; N18.9 Chronic kidney disease, unspecified; D64.9 Anemia, unspecified; F41.9 Anxiety disorder, unspecified; Z79.4 Long term (current) use of insulin; Z88.2 Allergy status to sulfonamides; Z88.1 Allergy status to other antibiotic agents; Z88.5 Allergy status to narcotic agent; Z88.8 Allergy status to other drugs, medicaments and biological substances; Z91.89 Other specified personal risk factors, not elsewhere classified

== ENCOUNTER → 2022-11-03 | Outpatient (REF) | payer OTHER ==
[~2022-11-03] MED LIST changes: +DOXY-443 PO; +JARD1TAB3
[2022-11-03 18:13] LABS: CREATININE, URINE 61.4 MG/DL
[2022-11-03 18:14] LABS: MAU/CREAT RATIO 157.9 MCG/MG (0.0-30.0)
== END ==
LOC: M LAB REF 16:28
PROVIDERS: ATTEND Nurse Practitioner Family
DX: E11.9 Type 2 diabetes mellitus without complications (principal)

== ENCOUNTER 2023-04-08 21:55 | Emergency (ER) | payer OTHER ==
[~2023-04-08] VITALS: Ht 172.7 cm; Wt 95.7 kg
[~2023-04-08 21:55] MED LIST changes: -AK-T0.3S OD; +TOBR0.3S30 OD
[2023-04-09 01:10] VITALS: BP 153/72; TEMP 97.4
[2023-04-09] MEDS ORDERED: LIDOCAINE 5% (LIDODERM) PATCH TD ONE (01:20)
[2023-04-09] MEDS ORDERED: KETOROLAC 60MG 2ML VIAL IM ONE (01:20)
[2023-04-09] MEDS ORDERED: traMADol 50 MG TAB (HOME DOSE PACK) PO ONE (02:00)
[2023-04-09] MEDS ORDERED: traMADol 50 MG TAB PO ONE (02:00)
[2023-04-09] MEDS ORDERED: TRAM50TA2 PO (02:08)
[2023-04-09] MEDS ORDERED: LIDO5DIS41 TD (02:08)
[2023-04-09] MEDS ORDERED: MM S100C PO (02:08)
[2023-04-09 02:37] VITALS: O2SAT 96
== END 2023-04-09 03:03 | disposition home or self-care (01) ==
LOC: M ED 21:55
DX: S22.41XA Multiple fractures of ribs, right side, initial encounter for closed fracture (principal); W18.2XXA Fall in (into) shower or empty bathtub, initial encounter; Y92.002 Bathroom of unspecified non-institutional (private) residence as the place of occurrence of the external cause; Y93.E1 Activity, personal bathing and showering; Y99.8 Other external cause status; E11.319 Type 2 diabetes mellitus with unspecified diabetic retinopathy without macular edema; E11.42 Type 2 diabetes mellitus with diabetic polyneuropathy; Z88.2 Allergy status to sulfonamides; Z88.6 Allergy status to analgesic agent; Z88.1 Allergy status to other antibiotic agents; Z88.8 Allergy status to other drugs, medicaments and biological substances; Z79.4 Long term (current) use of insulin; Z79.84 Long term (current) use of oral hypoglycemic drugs; Z79.899 Other long term (current) drug therapy

== ENCOUNTER → 2023-05-30 | Outpatient (REF) | payer OTHER ==
[~2023-05-30] MED LIST changes: +LIDO5DIS41 TD; +MM S100C PO; +TRAM50TA2 PO
[2023-05-30 19:17] LABS: BASO # 0.1 10^3/uL (0.0-0.2); BASO % 1.1 % (0.0-1.0); EOS # 0.5 10^3/uL (0.0-0.5); EOS % 5.2 % (0.0-3.0); HEMATOCRIT 46.3 % (36.0-47.0); HEMOGLOBIN 14.7 g/dl (12.0-15.5); LYMPH # 1.6 10^3/uL (1.5-5.0); LYMPH % 15.6 % (24.0-44.0); MEAN CORPUSCULAR HEMOGLOBIN 29.3 pg (27.0-33.0); MEAN CORPUSCULAR HGB CONC 31.7 g/dl (32.0-36.5); MEAN CORPUSCULAR VOLUME 92.2 fl (80.0-96.0); MONO # 0.7 10^3/uL (0.0-0.8); MONO % 6.8 % (2.0-8.0); NEUTROPHILS # 7.1 10^3/uL (1.5-8.5); NEUTROPHILS % 70.7 % (36.0-66.0); PLATELET COUNT, AUTOMATED 292 10^3/uL (150-450); RED BLOOD COUNT 5.02 10^6/uL (4.00-5.40); WHITE BLOOD COUNT 10.1 10^3/uL (4.0-10.0)
[2023-05-30 20:00] LABS: THYROID STIMULATING HORMONE 1.793 uIU/ML (0.55-4.78)
[2023-05-30 20:06] LABS: ALBUMIN 3.6 G/DL (3.2-5.2); ALKALINE PHOSPHATASE 109 U/L (46-116); ALT/SGPT 17 U/L (7.0-40); AST/SGOT 9 U/L (<34); BILIRUBIN,TOTAL 0.5 MG/DL (0.3-1.2); BLOOD UREA NITROGEN 21 MG/DL (9-23); CALCIUM LEVEL 9.1 MG/DL (8.5-10.1); CARBON DIOXIDE LEVEL 24 MMOL/L (20-31); CHLORIDE LEVEL 103 MMOL/L (98-107); CHOLESTEROL LEVEL 202 MG/DL (<200); CHOLESTEROL RISK RATIO 2.99 (<5); CREATININE FOR GFR 0.71 MG/DL (0.55-1.30); GLOMERULAR FILTRATION RATE > 60.0 (>58); GLUCOSE, FASTING 160 MG/DL (60-100); HDL CHOLESTEROL 67.5 MG/DL (>40); LDL CHOLESTEROL 105.3 MG/DL (<100); NON-HDL-C 134.5 MG/DL; POTASSIUM SERUM 4.4 MMOL/L (3.5-5.1); SODIUM LEVEL 139 MMOL/L (136-145); TOTAL PROTEIN 7.5 G/DL (5.7-8.2); TRIGLYCERIDES LEVEL 146 MG/DL (<150)
[2023-05-30 20:18] LABS: HEMOGLOBIN A1c 7.6 % (4.0-6.0)
== END ==
LOC: M LAB REF 16:48
PROVIDERS: ATTEND Pediatrics
DX: E11.21 Type 2 diabetes mellitus with diabetic nephropathy (principal)

== ENCOUNTER → 2023-05-31 | Outpatient (REF) | payer OTHER ==
[2023-05-31 18:38] LABS: CREATININE, URINE 85.4 MG/DL; MAU/CREAT RATIO 227.1 MCG/MG (0.0-30.0)
== END ==
LOC: M LAB REF 16:40
PROVIDERS: ATTEND Pediatrics
DX: R30.0 Dysuria (principal); E11.21 Type 2 diabetes mellitus with diabetic nephropathy

== ENCOUNTER → 2023-06-07 | Outpatient (CLI) | payer OTHER | LOC: M RAD 11:25 | PROVIDERS: ATTEND Pediatrics | DX: N28.1 Cyst of kidney, acquired (principal) ==

== ENCOUNTER → 2024-02-21 | Outpatient (CLI) | payer OTHER ==
[~2024-02-21] MED LIST changes: +DOXY-323 PO; -DOXY-443 PO; -GLIM1TAB4 PO; +GLIM1TAB84 PO
== END ==
LOC: M WUC 15:14
PROVIDERS: ATTEND Nurse Practitioner Family
DX: S22.41XS Multiple fractures of ribs, right side, sequela (principal)

== ENCOUNTER → 2025-05-22 | Outpatient (CLI) | payer OTHER ==
[~2025-05-22] MED LIST changes: -DOXY-323 PO; +DOXY-441 PO; -IBUP-1022 PO; +IBUP600T42 PO; +LIDO1ADH93 TD; -LIDO5DIS41 TD
== END ==
LOC: M RAD 08:20
PROVIDERS: ATTEND Nurse Practitioner Family
DX: R10.12 Left upper quadrant pain (principal)